=== PATIENT | female | born 1960 | race Caucasian/White ===

== ENCOUNTER 2024-10-13 20:11 | Emergency (ER) | payer OTHER, SELFPAY ==
--- NOTE | ~2024-10-13 | XR_ITS ---
CLINICAL HISTORY: fall, knee injury 4 view left knee Comparison: None Findings: Acute comminuted nondisplaced fracture of the tibial plateau. Moderate joint effusion/hemarthrosis. No significant arthritic change or erosions. No joint effusion. No radiopaque foreign body. IMPRESSION: Acute comminuted nondisplaced fracture of the tibial plateau. Moderate joint effusion/hemarthrosis. This document has been electronically signed by: Danita Mackenzie MD on 10/13/2024 21:18:45
[2024-10-13 20:34] VITALS: BP 170/80; PULSE 91; RESP 20; TEMP 36.4; O2SAT 98; BMI 30.2
--- NOTE | 2024-10-13 20:39 | ED.LOWEXIN ---
HPI - Extremity Injury (Lower) General Chief Complaint: Extremity Injury, Lower Stated Complaint: L knee injury s/p fall Time Seen by Provider: 10/13/24 23:56 Source: patient Limitations: no limitations History of Present Illness ED Provider: Nicole Johnson PA-C HPI Narrative: 63-year-old female presents with left knee pain. Patient states she stepped into a pothole subsequently tripped and fell, landing on the knee. Patient now is having limited flexion and extension of the knee and is unable to bear weight secondary to pain. Associated swelling. The patient is not on a blood thinner. Related Data Previous Rx's ?Medication ?Instructions ?Recorded methocarbamol 750 mg tablet 750 mg PO Q8H PRN pain, moderate 10/14/24 #10 tabs Allergies Allergy/AdvReac Type Severity Reaction Status Date / Time Penicillins Allergy Unknown Hives Verified 10/13/24 21:28 Review of Systems Review of Systems: Yes all other systems are reviewed and are negative Constitutional: Constitutional: Denies fatigue and Denies fever(s) Musculoskeletal: Musculoskeletal: Reports arthralgias and Reports joint swelling Endocrine: Endocrine: Denies fatigue PMFSH Past Medical History Attestation statement: The following information was validated with the patient. Social History Social History Smoked in Last 30 Days: No Use of substances other than those prescribed or required for medical reasons: No Advance Directives: No Advance Directives Information Provided: Yes Do you have a plan to hurt others: No Plan Patient : No Physical Exam Vital Signs: Vital Signs: Last Vital Signs Temp 98.4 F 10/14/24 00:01 Pulse 77 10/14/24 00:01 Resp 16 10/14/24 00:01 BP 129/77 10/14/24 00:01 Pulse Ox 97 10/14/24 00:01 O2 Del Method Room Air 10/14/24 00:01 BMI result Body Mass Index 30.2 Const: Other: Alert well-appearing Orientation/consciousness: patient oriented x3 Resp: Effort & Inspection: normal respiratory effort Cardio: Other: Normal peripheral perfusion Skin: Other: Warm dry no rash Neuro: General: patient oriented x3, gait normal, no focal motor deficits and CN's II-XI intact bilaterally Extrem: Other: Limited flexion and extension of the left knee, overlying abrasions, obvious swelling, pain most focal over anterior knee Psych: Other: Calm cooperative Course Course Course Narrative: 10/13/242038 JEROME Mack This is a Rapid Medical Examination (RME) performed by Nate Corrales PA-C in triage. Full HPI, ROS, assessment and treatment plan per primary provider in the Main ED. Hx: 63 yo F here for eval of left knee pain s/p trip and fall today. unable to bear weight. Plan: xrs Consultations Consultation #1: per ortho Antonieta Mix PA-C..... Place a knee immobilizer, crutches and follow up as an outpatient Time: 12:03 Medications Administered Discontinued Medications Generic Name Dose Route Start Last Admin Trade Name Freq PRN Reason Stop Dose Admin Methocarbamol 750 mg 10/14/24 01:28 10/14/24 01:40 Methocarbamol 750 Mg Tablet PO 10/14/24 01:29 750 mg ONCE ONE Administration Medical Decision Making Medical Decision Making [facility] Narrative: 63-year-old female presents with left knee pain. Patient states she stepped into a pothole subsequently tripped and fell, landing on the knee. Patient now is having limited flexion and extension of the knee and is unable to bear weight secondary to pain. Associated swelling. The patient is not on a blood thinner. No relevant chronic issues History: Per patient I have considered the following differential diagnoses: Fracture, dislocation, contusion, sprain Plan: X-ray obtained from triage, the patient has a tibial prep plateau fracture, with joint effusion. We will reach out to ortho for consult. Patient declining pain medicine at this time I have independently reviewed the following tests: X-ray left knee:Findings: Acute comminuted nondisplaced fracture of the tibial plateau. Moderate joint effusion/hemarthrosis. No significant arthritic change or erosions. No joint effusion. No radiopaque foreign body. IMPRESSION: Acute comminuted nondisplaced fracture of the tibial plateau. Moderate joint effusion/hemarthrosis. Discharge Plan Discharge Clinical Impression: Closed fracture of left tibial plateau Patient Disposition: Home, Self-Care Additional Instructions: You were found to have a fracture of your tibia. Keep the knee immobilizer in place, use crutches to ambulate, until you have been cleared by the orthopedic service. I am providing you with their contact. Call tomorrow to make a follow up appointment. You may want to use the immobilizer for sleep as well; it will help to stabilize the joint, and prevent pain. Alternate between the use of oefq-ykv-wplgbyp Tylenol 1000 mg taken every 8 hours, with cvon-qwf-hbiqhwo ibuprofen 600 mg taken every 6 hours with food, with the methocarbamol, which is a muscle relaxant. It will cause drowsiness, do not drive or operate machinery while taking this medication. Prescriptions: New methocarbamol 750 mg tablet 750 mg PO Q8H PRN (Reason: pain, moderate) Qty: 10 0RF Referrals: Brian Snell MD [Physician] - (left tibial plateau fx) Print Language: Belizean
[2024-10-13 21:27] VITALS: BP 151/83; PULSE 86; RESP 16; TEMP 37; O2SAT 98
--- NOTE | 2024-10-13 23:52 | PC.NURSE ---
Assumed care of pt at 2300. PT resting quietly in no acute distress, pt a/ox4, states she is comfortable when resting. Xray report is completed, pt not signed up yet. VSS. plan of care ongoing
[2024-10-14 00:01] VITALS: BP 129/77; PULSE 77; RESP 16; TEMP 36.9; O2SAT 97
[2024-10-14] MEDS: methocarbamoL 750 MG TABLET PO (01:40)
[2024-10-14 02:13] VITALS: BP 154/84; PULSE 96; RESP 16; TEMP 36.6; O2SAT 94
== END 2024-10-14 02:16 | disposition home or self-care (01) ==
PROVIDERS: Emergency Provider Emergency Medicine; PCP Student in an Organized Health Care Education/Training Program
DX: S82.142A Displaced bicondylar fracture of left tibia, initial encounter for closed fracture (principal); W01.0XXA Fall on same level from slipping, tripping and stumbling without subsequent striking against object, initial encounter; Y93.9 Activity, unspecified; Y92.9 Unspecified place or not applicable; Y99.9 Unspecified external cause status; M25.562 Pain in left knee
CPT/HCPCS: 73564; 99283; 99284

== ENCOUNTER → 2024-10-13 20:33 | Outpatient (BNV) | payer OTHER, SELFPAY | PROVIDERS: PCP Student in an Organized Health Care Education/Training Program; Visit Provider Student in an Organized Health Care Education/Training Program | DX: S82.115A Nondisplaced fracture of left tibial spine, initial encounter for closed fracture (principal) | CPT/HCPCS: 73564 ==

== ENCOUNTER 2024-10-21 09:38 | Outpatient (AMB) | payer OTHER, SELFPAY ==
--- NOTE | 2024-10-21 09:44 | MHC.OFFVIS ---
Vital Signs 10/21/24 09:48 Height 5 ft 1 in Weight 160 lb BMI 30.2 Handedness Left Intake Visit Reasons: FC- LT tibial plateau closed fx Intake Note: Zakiya is a 63 year old female who presents today with her partner and a knee immobilizer for a evaluation of her left tibial plateau fx, DOI 10/13/24. She states she stepped into a pothole subsequently tripped and fell, landing on both of her knees. She has notice bruising on both of her knees, however she mentions that her left knee is worse. Allergies Penicillins Allergy (Unknown, Verified 10/13/24 21:28) Hives HPI HPI FC- LT tibial plateau closed fx: Details: Ms. 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 She states that she was walking and unfortunately stepped into a pothole and fell. She sustained minor superficial abrasions on both knees in which they had tried to clean and apply bacitracin. When she went to stand after the injury she was unable to weightbear on the left lower extremity due to excruciating pain at the knee. She presented to the emergency department where x-rays were obtained and she was found to have a tibial plateau fracture. She was given a knee immobilizer and crutches with instruction to follow up with orthopedics outpatient for further evaluation and treatment. 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 No signs of infection at this time. No signs of open fracture. There is ecchymosis around the anterior aspect of the knee. Compartments are soft and compressible. She is able to dorsiflex and plantar flex. Sensation is intact. Pedal pulse intact. Assessment & Plan Assessment & Plan (1) Tibial plateau fracture, left: Code(s): S82.142A - Displaced bicondylar fracture of left tibia, initial encounter for closed fracture Category: Medical Plan Ms. 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 She states that she was walking and unfortunately stepped into a pothole and fell. She sustained minor superficial abrasions on both knees in which they had tried to clean and apply bacitracin. When she went to stand after the injury she was unable to weightbear on the left lower extremity due to excruciating pain at the knee. She presented to the emergency department where x-rays were obtained and she was found to have a tibial plateau fracture. She was given a knee immobilizer and crutches with instruction to follow up with orthopedics outpatient for further evaluation and treatment. While in the office today, we discussed the tibial plateau in the need for additional imaging to further evaluate the extent of the fracture. I have placed an order for a stat CT scan of the left knee to evaluate the extent of the fracture and negate the treatment plan. She was given an ACL brace off the shelf and instructed to non weightbear on the left lower extremity with the use of crutches. 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 She is unable to drive at this time and she needs to be extremely careful with nonweightbearing on the left lower extremity. She will follow up after the CT scan with me by telehealth for further discussion of the treatment plan. Left knee x-rays obtained on 10/13/2024 IMPRESSION: Acute comminuted nondisplaced fracture of the tibial plateau. Moderate joint effusion/hemarthrosis. Orders: Orders CT knee LT wo IV con Today S82.142A - Displaced bicondylar fracture of left tibia, initial encounter for closed fracture Coding Level of Care Code New Pt Level 4 (82484) Diagnoses Tibial plateau fracture, left S82.142A
[2024-10-21 09:48] VITALS: BMI 30.2
== END 2024-10-21 10:29 | disposition home or self-care (01) ==
LOC: HO.HOS 09:38
PROVIDERS: PCP Student in an Organized Health Care Education/Training Program; Visit Provider Physician Assistant
DX: S82.142A Displaced bicondylar fracture of left tibia, initial encounter for closed fracture (principal)
CPT/HCPCS: 99203

== ENCOUNTER 2024-10-21 11:20 | Outpatient (REF) | payer OTHER, SELFPAY ==
--- NOTE | ~2024-10-21 | CT_ITS ---
EXAMINATION: CT KNEE WITHOUT CONTRAST, LEFT CLINICAL INFORMATION: Intra-articular tibial plateau fracture COMPARISON: X-ray from October 13, 2024 DLP: 135 mGY*cm TECHNIQUE: Axial imaging with CT was performed without contrast scanning from the distal thigh to the proximal lower leg This CT examination was performed using dose optimization techniques as appropriate, variously including the following: *Automated exposure control *Adjustment of mA and/or kV according to patient size (this includes techniques or standardized protocols for targeted exams where dose is matched to indication/reason for exam; i.e. extremities or head) *Use of iterative reconstruction technique FINDINGS: Again noted is lipohemarthrosis. Small marginal osteophytes project into the intercondylar notch from the femoral condyle and medial tibial spine. Small marginal osteophytes present on the superior pole patella. There is mild lateral joint space narrowing. Again seen is an intra-articular fracture involving the tibial plateau. There is avulsion of the PCL tibial footprint. The bony fragment is elevated 2-3 mm. The fragment minimally extends to the articular bone in the posterior medial compartment and measures 22 x 7 x 10 mm (transverse by CC by AP). Otherwise, there is no significant gap or step-off involving the weightbearing regions of the tibial plateau. The main fracture extends from the region between the intercondylar spines and exits the medial tibial metadiaphysis 4.6 cm caudal to the articular surface. Meniscus is not well-demonstrated by CT but appear grossly intact. ACL and PCL are grossly intact. MCL and LCL complex are intact. CT/CT knee LT wo IV con IMPRESSION: Acute intra-articular tibial plateau fracture with associated lipohemarthrosis. Aside from fragmentation of the posterior central tibia minimally extending into osteochondral bone related to an avulsion fracture of the PCL footprint, there is no gap or step-off involving weightbearing surfaces. IMPRESSION: Unremarkable examination. Electronically signed by: Reji Cordova MD 10/21/2024 01:25 PM EDT
== END 2024-10-21 11:21 | disposition home or self-care (01) ==
LOC: HO.CT 11:20
PROVIDERS: Visit Provider Physician Assistant
DX: S82.142A Displaced bicondylar fracture of left tibia, initial encounter for closed fracture (principal)
CPT/HCPCS: 73700

== ENCOUNTER → 2024-10-21 11:26 | Outpatient (BNV) | payer OTHER, SELFPAY | PROVIDERS: Visit Provider Radiology Diagnostic Radiology | DX: M25.062 Hemarthrosis, left knee (principal) | CPT/HCPCS: 73700 ==

== ENCOUNTER 2024-11-22 09:47 | Outpatient (REF) | payer OTHER, SELFPAY | END 2024-11-22 09:48 | disposition home or self-care (01) | LOC: HO.HOSX 09:47 | PROVIDERS: Visit Provider Physician Assistant | DX: Z13.89 Encounter for screening for other disorder (principal) ==

== ENCOUNTER 2024-12-03 10:22 | Outpatient (REF) | payer OTHER, SELFPAY ==
--- NOTE | ~2024-12-03 | XR_ITS ---
EXAMINATION: XR KNEE, LEFT CLINICAL INFORMATION: M25.569 - Pain in unspecified knee COMPARISON: October 13, 2024 TECHNIQUE: AP bilateral, and lateral views of the left knee. FINDINGS: Again seen is a tibial fracture that extends from the tibial spines extending the medial metadiaphysis. There is interval development of osteopenia and periosteal new bone formation. There is no joint effusion. There is mild narrowing of the medial joint space and questionable narrowing of the lateral. XR/XR knee LT 2V IMPRESSION: Healing intra-articular fracture of the tibial plateau, nondisplaced. Electronically signed by: Reji Cordova MD 12/03/2024 12:28 PM EDT
--- OUTSIDE RECORDS SUMMARY | 2024-12-04 10:24 | XMS_ITS | Encounter Summary ---
Author Organization [facility] Address [address] [place] [address] Phone Care Team Providers Care Front Desk Lead Name Role Phone Maddison Obregon MD Unavailable [phone] Maryann Hensley MD Primary Care Provider [phone] Encounter Details Date Type Department Care Team (Late st Contact Info) Description 09/10/2022 Procedure Pass [facility], [facility] [address] [place] [address] Social History Tobacco Use Types Packs/Day Years [...] high school, GED, job training, learning the Dominican language, technical skills, or developing parenting skills)? [...] documented as of this encounter Care Teams Front Desk Lead Relationship Specialty Start Date End Date Maryann Hensley MD [address] [place] [address], [facility] [address] [place] [address] [email or web address] PCP - General Family Medicine 04/25/22 Maddison Obregon MD [address] [place] [address], [facility] [address] [place] [address] Historical LMR Provider 03/01/17 documented as of this encounter Additional Source Comments The information contained in this document represents components of the legal health record. It is not the complete legal health record.[facility]
== END 2024-12-03 10:23 | disposition home or self-care (01) ==
LOC: HO.HOSX 10:22
PROVIDERS: Visit Provider Physician Assistant
DX: S82.142D Displaced bicondylar fracture of left tibia, subsequent encounter for closed fracture with routine healing (principal); S80.02XA Contusion of left knee, initial encounter; M25.562 Pain in left knee
CPT/HCPCS: 73560

== ENCOUNTER 2024-12-03 11:26 | Outpatient (AMB) | payer OTHER, SELFPAY ==
--- OUTSIDE RECORDS SUMMARY | 2024-12-03 11:29 | XMS_ITS | Encounter Summary ---
Author Organization [facility] Address [address] [place] [address] Phone Care Team Providers Care Dynamometer Mechanic Name Role Phone Maddison Obregon MD Unavailable [phone] Maryann Hensley MD Primary Care Provider [phone] Encounter Details Date Type Department Care Team (Late st Contact Info) Description 09/10/2022 Procedure Pass [facility], [address] [address] Social History Tobacco Use Types Packs/Day Years Used Date Smoking Tobacco: Never Smokeless Tobacco: Never Alcohol Use Standard Drinks/Week Comments Yes 3 (1 standard drink = 0.6 oz pur e alcohol) Child or Family Care Answer Date Record ed Do you have problems with on e of the following making it difficult for you to work, study, or receive health care? No 10/02/2021 Education Answer Date Recorded Are you interested in help w ith more adult education (for example, completing high school, GED, job training, learning the Faroese language, technical skills, or developing parenting skills)? No 10/02/2021 Food Answer Date Recorded Within the past 6 months we worried whether our food would run out before we got money to buy more. Never True 10/02/2021 Within the past 6 months the food we bought just didn't last and we didn't have enough money to get more. Never True Residential Stability Answer Date Recor ded What is your housing situation today? I have pedrito sing 10/02/2021 How many times have you move d in the past 12 months? Zero (I did not move) 10/02/2021 Paying for Meds Answer Date Recorded Do you have trouble paying for medicines? No 10/02/2021 Paying Utility Bills Answer Date Record ed Do you have trouble paying your heating or elect ricity bill? No 10/02/2021 Transportation Answer Date Recorded Has the lack of transportati on kept you from medical appointments or from getting medications? No 10/02/2021 Unemployment Answer Date Recorded Are you currently unemployed or working on a part-time or temporary basis, and looking for work? No 10/02/2021 Comments No Sex and Gender Information Value Date Recorded Sex Assigned at Not on file Legal Sex Female 6:23 PM EST Gender Identity Not on file Sexual Orientation Not on file documented as of this encounter Plan of Treatment Not on file documented as of this encounter Visit Diagnoses Not on filedocumented in this encounter Additional Health Concerns Assessment Noted Time PHQ-2 Depression Total Score: 0 10/03/19 22 2:35 PM EDT documented as of this encounter Care Teams Dynamometer Mechanic Relationship Specialty Start Date End Date Maryann Hensley MD [address] [place] [address], [facility] [address] [place] [address] [email or web address] PCP - General Family Medicine 04/25/22 Maddison Obregon MD [address] [place] [address], [facility] [address] [place] [address] Historical LMR Provider 03/01/17 documented as of this encounter Additional Source Comments The information contained in this document represents components of the legal health record. It is not the complete legal health record.[facility]
--- NOTE | 2024-12-03 11:59 | MHC.OFFVIS ---
Vital Signs 12/03/24 12:15 Height 5 ft 1 in Weight 160 lb BMI 30.2 Intake Visit Reasons: OV- LT tibial plateau Fx 10/11/24 Intake Note: Zakiya is a 63 year old female who presents today for a follow up s/p Left Tibial Plateau Fracture 10/13/24. At this time the patient was instructed to remain Non Weight Bearing for 3 months and to wear the ACL Brace. She states that he is not in pain at the moment. Allergies Penicillins Allergy (Unknown, Verified 12/03/24 12:07) Hives HPI HPI OV- LT tibial plateau Fx 10/11/24: Details: Ms. Burgos is a 63-year-old female who presents to the office today for routine follow-up status post left tibial plateau fracture that occurred on 10/11/2024. At her last appointment on 10/21/24 the patient was placed into an ACL brace locked in extension while ambulating and instructed to non weightbear for roughly 3 months. She has been compliant with these recommendations and declines any pain at this time. 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 No signs of infection at this time. No signs of open fracture. There is ecchymosis around the anterior aspect of the knee. Range of motion is 0-30 degrees. She is able to dorsiflex and plantar flex. Sensation is intact. Pedal pulse intact. Assessment & Plan Assessment & Plan (1) Tibial plateau fracture, left: Code(s): S82.142A - Displaced bicondylar fracture of left tibia, initial encounter for closed fracture Category: Medical Plan Ms. Burgos is a 63-year-old female who presents to the office today for routine follow-up status post left tibial plateau fracture that occurred on 10/11/2024. At her last appointment on 10/21/24 the patient was placed into an ACL brace locked in extension while ambulating and instructed to non weightbear for roughly 3 months. She has been compliant with these recommendations and declines any pain at this time. On the office today repeat x-rays were obtained of the left knee and were reviewed by me, Antonieta Mix PA-C and reveal routine healing of the left nondisplaced tibial plateau fracture. Patient was placed back into the ACL brace. She was educated that while ambulating she should have the brace locked in extension. While she is not ambulating she may unlock the brace. Additionally, I placed a physical therapy order to work on gentle range of motion. She will continue nonweightbearing for a total of 3 months status post injury. She will follow up on 01/04/2025 with repeat x-rays, sooner if needed. Orders: Orders PT Evaluation and Treatment Today S82.142A - Displaced bicondylar fracture of left tibia, initial encounter for closed fracture Coding Level of Care Code Global (18676) Diagnoses Tibial plateau fracture, left S82.142A
[2024-12-03 12:15] VITALS: BMI 30.2
== END 2024-12-03 12:46 | disposition home or self-care (01) ==
LOC: HO.HOS 11:27
PROVIDERS: Visit Provider Physician Assistant
DX: S82.142A Displaced bicondylar fracture of left tibia, initial encounter for closed fracture (principal)
CPT/HCPCS: 99213

== ENCOUNTER → 2024-12-03 11:28 | Outpatient (BNV) | payer OTHER, SELFPAY | PROVIDERS: Visit Provider Radiology Diagnostic Radiology | DX: M25.562 Pain in left knee (principal) | CPT/HCPCS: 73560 ==

== ENCOUNTER 2025-01-04 08:23 | Outpatient (REF) | payer OTHER, SELFPAY ==
--- NOTE | ~2025-01-04 | XR_ITS ---
EXAMINATION: XR KNEE, LEFT CLINICAL INFORMATION: M25.569 - Pain in unspecified knee COMPARISON: 12/03/2024, 10/13/2024. TECHNIQUE: Three views of the left knee. FINDINGS: There is disuse osteopenia. [place] view is very limited due to superimposition of the patient's foot. Again noted is a nondisplaced fracture of the proximal tibia extending from the tibial spines to the metadiaphysis. Fracture lines are less distinct and slightly more sclerotic indicating continued healing. There is no articular step off. There is normal alignment of the knee. There is no joint effusion. Soft tissues appear normal. XR/XR knee LT 3V IMPRESSION: 1. Continued healing of a nondisplaced tibial plateau fracture. 2. Disuse osteopenia. Electronically signed by: Kirit Fulton MD 01/04/2025 10:00 AM EDT
--- OUTSIDE RECORDS SUMMARY | 2025-01-06 09:00 | XMS_ITS | Encounter Summary ---
Author Organization [facility] Address [address] [place] [address] [place] [address] Phone Care Team Providers Care Scientist Immunology Name Role Phone Maddison Obregon MD Unavailable [phone] Maddison Obregon MD Primary Care Provider [phone] Maryann Hensley MD Primary Care Provider [phone] Encounter Details Date Type Department Care Team (Late st Contact Info) Description 06/30/2019 Ancillary Orders [facility] [address] [place], [place] [id number] Maddison Obregon MD [address] [place] [address] 7 [place] [address] [email or web address] Breast screening Social History Tobacco Use Types [...] There are scattered fibroglandular densities. POS - [id number] Narrative 11/25/2019 9:35 AM EDT Standard digital [...] and compared with multiple prior studies, most uoqlleze84/14/2018, with utilization of computer-aided detection. The breasts are composed of scattered fibroglandular densities. Thestromal markings are essentially unchanged in overall appearance anddistribution. No dominant spiculated mass, suspicious clusteredmicrocalcifications, or focal zone of pathologic skin thickening orretraction are noted to have arisen in the interim. IMPRESSION: No mammographic evidence of malignancy. BI-RADS CATEGORY: 1 - Negative. DENSITY: There are scattered fibroglandular densities. POS - [id number] Maddison Obregon MD IMG MG EXAMS Final [...] documented as of this encounter Care Teams Scientist Immunology Relationship Specialty Start Date End Date Maddison Obregon MD [address] [facility], [facility] [address] [place] [address] [email or web address] PCP - General 05/15/17 04/24/22 Maryann Hensley MD [address] [facility], [facility] [address] [place] [address] PCP - General Family Medicine 04/25/22 Maddison Obregon MD [address] [place] [address], [facility] [address] [place] [address] [email or web address] Historical LMR Provider 03/01/17 documented as of this encounter Additional Source Comments The information contained in this document represents components of the legal health record. It is not the complete legal health record.[facility]
--- OUTSIDE RECORDS SUMMARY | 2025-01-06 09:00 | XMS_ITS | Encounter Summary ---
Author Organization [facility] Address [address] [place] [address] Phone Care Team Providers Care Committee Member Name Role Phone Maddison Obregon MD Unavailable [phone] Maryann Hensley MD Primary Care Provider [phone] Encounter Details Date Type Department Care Team (Late st Contact Info) Description 09/10/2022 Procedure Pass [facility], [facility] [address] [place] [address] Social History Tobacco Use Types Packs/Day Years [...] high school, GED, job training, learning the Gibraltarian language, technical skills, or developing parenting skills)? [...] documented as of this encounter Care Teams Committee Member Relationship Specialty Start Date End Date Maryann Hensley MD [address] [place] [address], [facility] 7 [place] [address] [email or web address] PCP - General Family Medicine 04/25/22 Maddison Obregon MD [address] [place] [address], [facility] 7 [place] [address] Historical LMR Provider 03/01/17 documented as of this encounter Additional Source Comments The information contained in this document represents components of the legal health record. It is not the complete legal health record.[facility]
--- OUTSIDE RECORDS SUMMARY | 2025-01-06 09:00 | XMS_ITS | Encounter Summary ---
Author Organization [facility] Address [address] [place] [address] Phone Care Team Providers Care Tractor Mechanic Apprentice Name Role Phone Maddison Obregon MD Unavailable [phone] Maddison Obregon MD Primary Care Provider [phone] Maryann Hensley MD Primary Care Provider [phone] Encounter Details Date Type Department Care Team (Late st Contact Info) Description 02/11/2022 Procedure Pass [facility], [facility] 30 [place] [address] Social History Tobacco Use Types Packs/Day Years [...] high school, GED, job training, learning the Ukrainian language, technical skills, or developing parenting skills)? [...] documented as of this encounter Care Teams Tractor Mechanic Apprentice Relationship Specialty Start Date End Date Maddison Obregon MD [address] [address] PCP - General 05/15/17 04/24/22 Maryann Hensley MD [address] [address] PCP - General Family Medicine 04/25/22 Maddison Obregon MD [address] [address] [email or web address] Historical LMR Provider 03/01/17 documented as of this encounter Additional Source Comments The information contained in this document represents components of the legal health record. It is not the complete legal health record.[facility]
--- OUTSIDE RECORDS SUMMARY | 2025-01-06 09:00 | XMS_ITS | Encounter Summary ---
Author Organization [facility] Address [address] [place] [address] [place] [address] Phone Care Team Providers Care Lead Process Engineer Name Role Phone Maddison Obregon MD Unavailable [phone] Maddison Obregon MD Primary Care Provider [phone] Maryann Hensley MD Primary Care Provider [phone] Encounter Details Date Type Department Care Team (Late st Contact Info) Description 05/26/2018 Ancillary Orders Virtual Department 30 [place] [address] Romero Long MD [address] [place] [address] [email or web address] Intestinal malabsorption, unspecified type Social History Tobacco [...] documented as of this encounter Care Teams Lead Process Engineer Relationship Specialty Start Date End Date Maddison Obregon MD [address] [place] [address], [facility] 7 [place] [address] PCP - General 05/15/17 04/24/22 Maryann Hensley MD [address] [place] [address] 7 [place] [address] PCP - General Family Medicine 04/25/22 Maddison Obregon MD [address] [place] [address], [facility] 7 [place] [address] Historical LMR Provider 03/01/17 documented as of this encounter Additional Source Comments The information contained in this document represents components of the legal health record. It is not the complete legal health record.[facility]
--- OUTSIDE RECORDS SUMMARY | 2025-01-06 09:00 | XMS_ITS | Encounter Summary ---
Author Organization [facility] Address [address] [place] [address] [place] [address] Phone Care Team Providers Care Film Inspector Name Role Phone Maddison Obregon MD Unavailable [phone] Maryann Hensley MD Primary Care Provider [phone] Reason for Referral * MRI/CAT Scan - Closed Specialty Diagnoses / Procedures Referred By Chris lewis Referred To Contact Radiology Diagnoses At high risk for breast cancer Procedures MRI Breast (Bilateral) Maryann Hensley MD 234 [facility] 7 [place] [address] Phone: tel: fax: mailto:[email or web address] Referral ID Status Reason Start Date Expiration Date Visits Re quested Visits Authorized [id number] Closed 03/22/2024 1 1 Encounter Details Date Type Department Care Team (Late st Contact Info) Description 03/22/2024 Ancillary Orders [facility] [address] [place] [address] Maryann Hensley MD [address] [address] [email or web address] At high risk for breast cancer (Primary [...] high school, GED, job training, learning the Syrian language, technical skills, or developing parenting skills)? [...] (series 102 image 140), there is a C6wjohgcnqsjhr, oval, enhancing (progressive, type I) nodule measuring 0.6cm, this has a stable mammographic correlate dating back to 2021. Inferiorto the enhancing nodule there are 4 linearly oriented enhancing focipresent, there is a mammographic correlate for this finding on priormammogram of 2022 and these are felt to be present mammographically [id number]. Therefore, this MR finding is considered probably [...] documented as of this encounter Care Teams Film Inspector Relationship Specialty Start Date End Date Maryann Hensley MD 234 [facility], [address] [place] [address] [email or web address] PCP - General Family Medicine 04/25/22 Maddison Obregon MD 234 [facility], [address] [place] [address] [email or web address] Historical LMR Provider 03/01/17 documented as of this encounter Additional Source Comments The information contained in this document represents components of the legal health record. It is not the complete legal health record.[facility]
--- OUTSIDE RECORDS SUMMARY | 2025-01-06 09:00 | XMS_ITS | Encounter Summary ---
Author Organization [facility] Address [address] [place] [address] Phone Care Team Providers Care Taxation Agent Name Role Phone Maddison Obregon MD Unavailable [phone] Maryann Hensley MD Primary Care Provider [phone] Encounter Details Date Type Department Care Team (Late st Contact Info) Description 01/22/2024 Procedure Pass [facility], [address] [address] Social History Tobacco Use Types Packs/Day Years [...] high school, GED, job training, learning the Peruvian language, technical skills, or developing parenting skills)? [...] documented as of this encounter Care Teams Taxation Agent Relationship Specialty Start Date End Date Maryann Hensley MD [address] [place] [address], [address] [place] [address] PCP - General Family Medicine 12/15/22 Maddison Obregon MD [address] [place] [address], [address] [place] [address] [email or web address] Historical LMR Provider 03/01/17 documented as of this encounter Additional Source Comments The information contained in this document represents components of the legal health record. It is not the complete legal health record.[facility]
--- OUTSIDE RECORDS SUMMARY | 2025-01-06 09:00 | XMS_ITS | Encounter Summary ---
Author Organization [facility] Address [address] [place] [address] Phone Care Team Providers Care Metalizer Field Operation Name Role Phone Maddison Obregon MD Unavailable [phone] Maddison Obregon MD Primary Care Provider [phone] Maryann Hensley MD Primary Care Provider [phone] Encounter Details Date Type Department Care Team (Late st Contact Info) Description 12/24/2021 Procedure Pass [facility], [facility] 30 [place] [address] Social History Tobacco Use Types Packs/Day Years [...] high school, GED, job training, learning the Paraguayan language, technical skills, or developing parenting skills)? [...] documented as of this encounter Care Teams Metalizer Field Operation Relationship Specialty Start Date End Date Maddison Obregon MD [address] [place] [address] PCP - General 05/15/17 04/24/22 Maryann Hensley MD [address] [place] [address] 7 [place] [address] PCP - General Family Medicine 04/25/22 Maddison Obregon MD [address] [place] [address] 7 [place] [address] Historical LMR Provider 03/01/17 documented as of this encounter Additional Source Comments The information contained in this document represents components of the legal health record. It is not the complete legal health record.[facility]
--- OUTSIDE RECORDS SUMMARY | 2025-01-06 09:00 | XMS_ITS | Encounter Summary ---
Author Organization [facility] Address [address] [place] [address] Phone Care Team Providers Care Manager Instrumentation Name Role Phone Maddison Obregon MD Unavailable [phone] Maddison Obregon MD Primary Care Provider [phone] Maryann Hensley MD Primary Care Provider [phone] Encounter Details Date Type Department Care Team (Late st Contact Info) Description 02/11/2022 Procedure Pass [facility], [facility] 30 [place] [address] Social History Tobacco Use Types Packs/Day Years [...] high school, GED, job training, learning the Yemeni language, technical skills, or developing parenting skills)? [...] documented as of this encounter Care Teams Manager Instrumentation Relationship Specialty Start Date End Date Maddison Obregon MD [address] [address] PCP - General 05/15/17 04/24/22 Maryann Hensley MD [address] [address] PCP - General Family Medicine 04/25/22 Maddison Obregon MD [address] [address] Historical LMR Provider 03/01/17 documented as of this encounter Additional Source Comments The information contained in this document represents components of the legal health record. It is not the complete legal health record.[facility]
--- OUTSIDE RECORDS SUMMARY | 2025-01-06 09:01 | XMS_ITS | Encounter Summary ---
Author Organization [facility] Address [address] [facility] [address] [place] [address] Phone Care Team Providers Care Crepe Sole Scourer Name Role Phone Maddison Obregon MD Unavailable [phone] Maddison Obregon MD Primary Care Provider [phone] Maryann Hensley MD Primary Care Provider [phone] Encounter Details Date Type Department Care Team (Late st Contact Info) Description 04/29/2018 Procedure Pass [facility] Ad[facility] Virtual Department 30 [place] [address] Social History Tobacco Use Types Packs/Day Years [...] documented as of this encounter Care Teams Crepe Sole Scourer Relationship Specialty Start Date End Date Maddison Obregon MD [address] [place] [address], [address] [place] [address] [email or web address] PCP - General 05/15/17 04/24/22 Maryann Hensley MD [address] [place] [address], [facility] [address] [place] [address] PCP - General Family Medicine 04/25/22 Maddison Obregon MD [address] [place] [address], [address] [place] [address] [email or web address] Historical LMR Provider 03/01/17 documented as of this encounter Additional Source Comments The information contained in this document represents components of the legal health record. It is not the complete legal health record.[facility]
--- OUTSIDE RECORDS SUMMARY | 2025-01-06 09:01 | XMS_ITS | Encounter Summary ---
Author Organization [facility] Address [address] [place] [address] Phone Care Team Providers Care Agronomy Manager Name Role Phone Maddison Obregon MD Unavailable [phone] Maddison Obregon MD Primary Care Provider [phone] aMryann Hensley MD Primary Care Provider [phone] Encounter Details Date Type Department Care Team (Late st Contact Info) Description 10/02/2021 Procedure Pass [facility] [address] [place] [address] Social History Tobacco Use Types Packs/Day Years [...] documented as of this encounter Care Teams Agronomy Manager Relationship Specialty Start Date End Date Maddison Obregon MD [address] [place] [address] PCP - General 05/15/17 04/24/22 Maryann Hensley MD [address] [place] [address] 7 [place] [address] PCP - General Family Medicine 04/25/22 Maddison Obregon MD [address] [place] [address], [address] [place] [address] [email or web address] Historical LMR Provider 03/01/17 documented as of this encounter Additional Source Comments The information contained in this document represents components of the legal health record. It is not the complete legal health record.[facility]
--- OUTSIDE RECORDS SUMMARY | 2025-01-06 09:01 | XMS_ITS | Encounter Summary ---
Author Organization [facility] Address [address] [place] [address] Phone Care Team Providers Care Caseworker Protective Services Name Role Phone Maddison Obregon MD Unavailable Maryann Hensley MD Primary Care Provider [phone] Encounter Details Date Type Department Care Team (Late st Contact Info) Description 03/22/2024 Procedure Pass [facility], [address] [address] Social History Tobacco Use Types Packs/Day Years [...] high school, GED, job training, learning the Bruneian language, technical skills, or developing parenting skills)? [...] documented as of this encounter Care Teams Caseworker Protective Services Relationship Specialty Start Date End Date Maryann Hensley MD [address] [place] [address], [address] [place] [address] PCP - General Family Medicine 12/15/22 Maddison Obregon MD [address] [place] [address], [address] [place] [address] [email or web address] Historical LMR Provider 03/01/17 documented as of this encounter Additional Source Comments The information contained in this document represents components of the legal health record. It is not the complete legal health record.[facility]
--- OUTSIDE RECORDS SUMMARY | 2025-01-06 09:01 | XMS_ITS | Encounter Summary ---
Author Organization [facility] Address [address] [place] [address] [place] [address] Phone Care Team Providers Care Pharmacovigilance Safety Expert Name Role Phone Maddison Obregon MD Unavailable [phone] Maddison Obregon MD Primary Care Provider [phone] Maryann Hensley MD Primary Care Provider [phone] Encounter Details Date Type Department Care Team (Late st Contact Info) Description 01/02/2018 Ancillary Orders [facility] 234 [place], [place] [id number] Maddison Obregon MD [address] [place] [address] 7 [place] [address] [email or web address] Breast screening Social [...] documented as of this encounter Care Teams Pharmacovigilance Safety Expert Relationship Specialty Start Date End Date Maddison Obregon MD [address] [place] [address] 7 [place] [address] PCP - General 05/15/17 04/24/22 Maryann Hensley MD [address] [place] [address] 7 [place] [address] PCP - General Family Medicine 04/25/22 Maddison Obregon MD [address] [place] [address] 7 [place] [address] Historical LMR Provider 03/01/17 documented as of this encounter Additional Source Comments The information contained in this document represents components of the legal health record. It is not the complete legal health record.[facility]
--- OUTSIDE RECORDS SUMMARY | 2025-01-06 09:01 | XMS_ITS | Clinical Summary ---
Author Organization [facility] Address [address] [facility] [address] [place] [address] Phone Care Team Providers Care Mult Au Matic Operator Name Role Phone Maddison Obregon MD Unavailable [phone] Maryann Hensley MD Primary Care Provider [phone] Allergies Active Allergy Reactions Criticality Noted Date Comments Nickel Swelling Medium 01/22/2024 Penicillin Rash Low 12/09/2016 Other reaction(s): Unknown Medications vitamins A,C,E-zinc-copy cutter per ([facility]) [id number] dpjd-wv-iljf Cap Take 1 capsule by mouth 2 [...] ulcerative colitis 12/31/2017 Overview (04/25/2022): Followed by [facility] -- on katrina, works great. Assessment [...] Department Care Team Description 10/22/2024 Orders Only [facility] 234 [place] [address] ProviderBalbina MD 10/14/2024 Telephone [facility] [address] [place] [address] Maryann Hensley MD Follow-up; Medication Question from [...] high school, GED, job training, learning the Tunisian language, technical skills, or developing parenting skills)? [...] (series 102 image 140), there is a J9rskmyxllhfen, oval, enhancing (progressive, type I) nodule measuring 0.6cm, this has a stable mammographic correlate dating back to 2021. Inferiorto the enhancing nodule there are 4 linearly oriented enhancing focipresent, there is a mammographic correlate for this finding on priormammogram of 2022 and these are felt to be present mammographically [id number]. Therefore, this MR finding is considered probably [...] (01/29/2024 8:21 AM EDT) HDL 56 mg/dL [facility] Comment: Interpretation <40 mg/dL: Low HDL cholesterol (major risk factor for CHD) Greater than or equal to 60 mg/dL: High HDL cholesterol ( negative risk factor for CHD) HDL - cholesterol is affected by a number of factors, e.g. smoking, excerise, hormones, sex and age. CHOLESTEROL 228 0 - 240 mg/dL [facility] TRIGLYCERIDES 79 30 - 160 mg/dL [facility] LDL 156(H) 50 - 129 mg/dL [facility] Comment: LDL levels in terms of risk for coronary heart disease: <100 mg/dL: Optimal 100-129 mg/dL: Near or above optimal 130-159 mg/dL: Borderline high 160-189 mg/dL: High >190 mg/dL: Very High CARDIAC RISK RATIO 4.1 3.3 - 4.4 [facility] Blood 01/29/2024 8:21 AM EDT 01/29/2024 8:23 AM EDT Maryann Hensley MD LAB BLOOD ORDERABLES Sailaja l Result [address] [address] * COLONOSCOPY FOR RESULT ENTRY ONLY (02/10/2023) Historical Provider HEALTH MAINTENANCE Final Result * Pap Smear (10/04/2021 12:00 AM EDT) 10/04/2021 10/05/2021 9:0 9 AM EDT Narrative SEE NARRATIVE - 10/12/2021 11:35 AM EDT [address] [address] Wellness Health Coach: Berenice Dudley MD [facility] Cytology Report FINAL DIAGNOSIS A. PAP SMEAR [...] 52, 56, 58, 59, 66, 68) by [employer] On[employer] HR-HPV analysis. Clinical correlation is advised. This HPV test was performed at [facility], [address] [place] [address]. This test has been FDA approved for [employer] cervical cytology specimens. The accuracy and precision of this test for all other specimen sources has been verified in the Cytopathology Laboratory of the [facility] and has not been cleared or approved by the U.S. Food and Drug Administration. Clinical correlation is advised. CLINICAL HISTORY Date of Last Menstrual Period: Not Provided Menstrual History: Post Menopausal Other Clinical Conditions: Screening Pap SPECIMEN SOURCE A: PAP SMEAR (SUREPATH) CE Patient Name: JAVI BURGOS : 1960 (Age: 60) Sex: F Institution: [facility] Location: [facility] Date of Collection: 10/04/2021 Date of Reported: 10/12/2021 11:35 Results to: Maddison Obregon MD, BA us Maddison Obregon MD CYTOLOGY ORDERABLES Final Res ult SEE NARRATIVE * Hepatitis C antibody, qualitative (07/20/2019 8:10 AM EDT) HCV NON-REACTIV E NON-REACTI VE [facility] Blood 07/20/2019 8:10 AM EDT 07/20/2019 8:12 AM EDT us Maddison Obregon MD LAB BLOOD ORDERABLES Final Re sult [facility] Organization Address City/State/ZIP Co de Phone Number [facility] [address] [place], [place] [id number] from Last 3 Months or Most Recently Relevant to Health Maintenance Insurance CHOICE CHOICE CHOICE CHOICE CHOICE CHOICE CHOICE CHOICE CHOICE [place] [phone] Care Teams Mult Au Matic Operator Relationship Specialty Start Date End Date Maryann Hensley MD [address] [place] [address], [address] [place] [address] [email or web address] PCP - General Family Medicine 04/25/22 Maddison Obregon MD [address] [facility], [address] [place] [address] [email or web address] Historical LMR Provider 03/01/17 Additional Source Comments The information contained in this document represents components of the legal health record. It is not the complete legal health record.[facility]
--- OUTSIDE RECORDS SUMMARY | 2025-01-06 09:01 | XMS_ITS | Encounter Summary ---
Author Organization [facility] Address [address] [place] [address] Phone Care Team Providers Care Advanced Practice Provider Name Role Phone Maddison Obregon MD Unavailable [phone] Maddison Obregon MD Primary Care Provider [phone] Maryann Hensley MD Primary Care Provider [phone] Encounter Details Date Type Department Care Team (Late st Contact Info) Description 11/29/2020 Procedure Pass [facility], [facility] 30 [place] [address] Social History Tobacco Use Types Packs/Day Years [...] high school, GED, job training, learning the Sammarinese language, technical skills, or developing parenting skills)? [...] documented as of this encounter Care Teams Advanced Practice Provider Relationship Specialty Start Date End Date Maddison Obregon MD [address] [place] [address] [email or web address] PCP - General 05/15/17 04/24/22 Maryann Hensley MD [address] [place] [address] [email or web address] PCP - General Family Medicine 04/25/22 Maddison Obregon MD [address] [place] [address] [email or web address] Historical LMR Provider 03/01/17 documented as of this encounter Additional Source Comments The information contained in this document represents components of the legal health record. It is not the complete legal health record.[facility]
--- OUTSIDE RECORDS SUMMARY | 2025-01-06 09:01 | XMS_ITS | Encounter Summary ---
Author Organization [facility] Address [address] [place] [address] Phone Care Team Providers Care Underwater Hunter Name Role Phone Maddison Obregon MD Unavailable [phone] Maddison Obregon MD Primary Care Provider Maryann Hensley MD Primary Care Provider [phone] Encounter Details Date Type Department Care Team (Late st Contact Info) Description 11/29/2020 Ancillary Orders [facility] [address] [place] [address] Maddison Obregon MD [address] [place] [address] 7 [place] [address] [email or web address] Breast screening Social History Tobacco Use Types [...] high school, GED, job training, learning the Cameroonian language, technical skills, or developing parenting skills)? [...] documented as of this encounter Care Teams Underwater Hunter Relationship Specialty Start Date End Date Maddison Obregon MD [address] [place] [address] [place] [address] [email or web address] PCP - General 05/15/17 04/24/22 Maryann Hensley MD [address] [place] [address] [place] [address] [email or web address] PCP - General Family Medicine 04/25/22 Maddison Obregon MD [address] [place] [address] [place] [address] [email or web address] Historical LMR Provider 03/01/17 documented as of this encounter Additional Source Comments The information contained in this document represents components of the legal health record. It is not the complete legal health record.[facility]
--- OUTSIDE RECORDS SUMMARY | 2025-01-06 09:01 | XMS_ITS | Encounter Summary ---
Author Organization [facility] Address [address] [place] [address] Phone Care Team Providers Care Document Advisor Name Role Phone Maddison Obregon MD Unavailable [phone] Maryann Hensley MD Primary Care Provider [phone] Reason for Visit * Reason Onset Date Comments Follow-up 10/14/2024 Medication Question 10/14/2024 Encounter Details Date Type Department Care Team (Late st Contact Info) Description 10/14/2024 Telephone [facility] 234 [place] [address] Maryann Hensley MD [address] [place] [address] [address] [place] [address] [email or web address] Follow-up; Medication Question Social History Tobacco Use [...] high school, GED, job training, learning the Chadian language, technical skills, or developing parenting skills)? [...] schedule Medication issue to be resolved by [facility] provider Pt will call if an appt is needed (she is seeing ortho provider next wk) * ChangSravan - 10/14/2024 11:11 AM EDT Emergency Department (ED, ER) Appointment Booking Telephone Encounter 1.Appointment scheduled within 5 calendar days:YES/NO: no? 2.Virtual or in-person appointment: In-Person and N/A 3.Information related to the patient ER/ED visit: A. Facility Name:? [facility] ED B. Date of ED Visit: 10/13/2024 C. Reason for visit (Diagnosis/Symptoms):? broken left tibial plateau 4.Is the record of the Emergency Department visit in the chart: YES/NO: no? a. IF NOT, patient was instructed to have records faxed to office, and to bring in a hard copy during the appointment. Pt is asking for a prescription, methocarbamol was prescribed by [facility] but the pharmacy will not fill. Central Support Party Chief (Please do not reply to this user; this inbox is not monitored.) Thank you. documented in this encounter Plan of Treatment Not on file documented as of this encounter Visit Diagnoses Not on filedocumented in this encounter Additional Health Concerns Assessment Noted Time PHQ-2 Depression Total Score: 0 01/22/20 24 1:30 PM EDT documented as of this encounter Care Teams Document Advisor Relationship Specialty Start Date End Date Maryann Hensley MD [address] [place] [address], [facility] 7 [place] [address] PCP - General Family Medicine 04/25/22 Maddison Obregon MD [address] [place] [address], [facility] 7 [place] [address] Historical LMR Provider 03/01/17 documented as of this encounter Additional Source Comments The information contained in this document represents components of the legal health record. It is not the complete legal health record.[facility]
--- OUTSIDE RECORDS SUMMARY | 2025-01-06 09:01 | XMS_ITS | Encounter Summary ---
Author Organization [facility] Address [address] [facility] [address] [place] [address] Phone Care Team Providers Care Executive Administrator Name Role Phone Maddison Obregon MD Unavailable [phone] Maddison Obregon MD Primary Care Provider [phone] Maryann Hensley MD Primary Care Provider [phone] Encounter Details Date Type Department Care Team (Late st Contact Info) Description 10/19/2020 Procedure Pass [facility] Admitting [facility] Virtual Department 30 [place], [place] [id number] Social History Tobacco Use Types Packs/Day Years [...] high school, GED, job training, learning the Chilean language, technical skills, or developing parenting skills)? [...] documented as of this encounter Care Teams Executive Administrator Relationship Specialty Start Date End Date Maddison Obregon MD [address] [place] [address] 7 [place] [address] PCP - General 05/15/17 04/24/22 Maryann Hensley MD [address] [place] [address] 7 [place] [address] PCP - General Family Medicine 04/25/22 Maddison Obregon MD [address] [place] [address] 7 [place] [address] Historical LMR Provider 03/01/17 documented as of this encounter Additional Source Comments The information contained in this document represents components of the legal health record. It is not the complete legal health record.[facility]
--- OUTSIDE RECORDS SUMMARY | 2025-01-06 09:01 | XMS_ITS | Encounter Summary ---
Author Organization [facility] Address [address] [facility] [address] [place] [address] Phone Care Team Providers Care Adjunct Professor Name Role Phone Maddison Obregon MD Unavailable [phone] Maddison Obregon MD Primary Care Provider [phone] Maryann Hensley MD Primary Care Provider [phone] Encounter Details Date Type Department Care Team (Late st Contact Info) Description 04/07/2018 Ancillary Orders Virtual Department 30 [place] [address] Ousmane Sood MD [address] [place] [address] [email or web address] Intestinal malabsorption, unspecified type Social History Tobacco [...] documented as of this encounter Care Teams Adjunct Professor Relationship Specialty Start Date End Date Maddison Obregon MD [address] [place] [address], [facility] 7 [place] [address] PCP - General 05/15/17 04/24/22 Maryann Hensley MD [address] [place] [address], [facility] 7 [place] [address] PCP - General Family Medicine 04/25/22 Maddison Obregon MD [address] [place] [address], [facility] 7 [place] [address] Historical LMR Provider 03/01/17 documented as of this encounter Additional Source Comments The information contained in this document represents components of the legal health record. It is not the complete legal health record.[facility]
--- OUTSIDE RECORDS SUMMARY | 2025-01-06 09:01 | XMS_ITS | Encounter Summary ---
Author Organization [facility] Address [address] [place] [address] [place] [address] Phone Care Team Providers Care Supervisor Ride Assembly Name Role Phone Maddison Obregon MD Unavailable [phone] Maddison Obregon MD Primary Care Provider [phone] Maryann Hensley MD Primary Care Provider [phone] Encounter Details Date Type Department Care Team (Late st Contact Info) Description 11/28/2017 Ancillary Orders Virtual Department 30 [place] [address] Shalini Valerio MD [address] [place] [address] [email or web address] Kidney stone Social History Tobacco Use Types [...] and right renal stone. No hydronephrosis. POS [id number] Edited by: Carolyn Montano on 01/28/2018 10:12 [...] cysts and right renal stone. Nohydronephrosis. POS [id number] Edited by: Carolyn Montano on 01/28/2018 10:12 AM Shalini Valerio MD [facility] Final Resu lt documented in this [...] documented as of this encounter Care Teams Supervisor Ride Assembly Relationship Specialty Start Date End Date Maddison Obregon MD [address] [place] [address], [facility] 7 [place] [address] [email or web address] PCP - General 05/15/17 04/24/22 Maryann Hensley MD [address] [place] [address], [facility] 7 [place] [address] PCP - General Family Medicine 04/25/22 Maddison Obregon MD [address] [place] [address], [facility] 7 [place] [address] Historical LMR Provider 03/01/17 documented as of this encounter Additional Source Comments The information contained in this document represents components of the legal health record. It is not the complete legal health record.[facility]
== END 2025-01-04 08:24 | disposition home or self-care (01) ==
LOC: HO.HOSX 08:23
PROVIDERS: Visit Provider Physician Assistant
DX: S82.142D Displaced bicondylar fracture of left tibia, subsequent encounter for closed fracture with routine healing (principal); X58.XXXD Exposure to other specified factors, subsequent encounter
CPT/HCPCS: 73562

== ENCOUNTER 2025-01-04 09:30 | Outpatient (AMB) | payer OTHER, SELFPAY ==
--- NOTE | 2025-01-04 09:35 | A.OFFVIS_ITS ---
Vital Signs 01/04/25 09:43 Height 5 ft 1 in Weight 160 lb BMI 30.2 Intake Visit Reasons: OV- LT tibial plateau Fx 10/11/24 Intake Note: Zakiya is a 64 year old female who presents today for a follow up of her Left Tibial Plateau Fracture 10/13/24. At her last visit she was advised to continue wearing her ACL brace, locked in extension and it she is sitting she should have the ACL brace unlocked. Patient was also referred to physical therapy to work on gentle range of motion. Patient states she has been attending physical therapy focusing on bending her knee and she is expereincing very little pain at this time. Allergies Penicillins Allergy (Unknown, Verified 01/04/25 09:45) Hives HPI HPI OV- LT tibial plateau Fx 10/11/24: Details: Ms. Burgos is a 64-year-old female who presents to the office today accompanied by her for routine follow-up status post left tibial plateau fracture that occurred on 10/11/2024. Patient has been nonweightbearing in the knee ACL brace as instructed at her last appointment. She is working on gentle range of motion with physical therapy. She denies any pain or discomfort at this time. She is looking forward to beginning weight-bearing activities and progressing with range of motion. 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 No ecchymosis, erythema or joint effusion. Range of motion is 0-50 degrees. NVI. Psych Appearance: grossly normal Mental Status: mental status grossly normal Attitude: cooperative Assessment & Plan Assessment & Plan (1) Tibial plateau fracture, left: Code(s): S82.142A - Displaced bicondylar fracture of left tibia, initial encounter for closed fracture Category: Medical Plan Ms. Burgos is a 64-year-old female who presents to the office today accompanied by her for routine follow-up status post left tibial plateau fracture that occurred on 10/11/2024. Patient has been nonweightbearing in the knee ACL brace as instructed at her last appointment. She is working on gentle range of motion with physical therapy. She denies any pain or discomfort at this time. She is looking forward to beginning weight-bearing activities and progressing with range of motion. While in the office today, I have instructed the patient that she may progress to weight-bearing as tolerated. I have recommended that she continue using crutches to assist with ambulation for balance at this time. Additionally, I would like her to continue with physical therapy working on gait training as well as unlocking the brace during ambulation 10 degrees each week until full range of motion is obtained and then she may discontinue the brace. I educated the patient that should she have any increase in pain she should stop weight-bearing immediately and contact our office or present to the emergency department for evaluation. Patient understands and accepts. She will follow up in 6 weeks with repeat x-rays, sooner if needed. X-rays of the left knee which were obtained while in the office today and were reviewed by me, Antonieta Mix PA-C, revealed routine healing tibial plateau fracture. Orders: Orders XR knee LT 3V Today M25.569 - Pain in unspecified knee PT Evaluation and Treatment Today S82.142A - Displaced bicondylar fracture of left tibia, initial encounter for closed fracture Coding Level of Care Code Global (67278) Diagnoses Tibial plateau fracture, left S82.142A
[2025-01-04 09:43] VITALS: BMI 30.2
--- OUTSIDE RECORDS SUMMARY | 2025-01-04 10:06 | XMS_ITS | Encounter Summary ---
Author Organization [facility] Address [address] [place] [address] [place] [address] Phone Care Team Providers Care Engine Buildup Mechanic Name Role Phone Maddison Obregon MD Unavailable [phone] Maryann Hensley MD Primary Care Provider [phone] Reason for Referral * MRI/CAT Scan - Closed Specialty Diagnoses / Procedures Referred By Chris lewis Referred To Contact Radiology Diagnoses At high risk for breast cancer Procedures MRI Breast (Bilateral) Maryann Hensley MD 234 [facility] [address] [place] [address] Phone: tel: fax: mailto:[email or web address] Referral ID Status Reason Start Date Expiration Date Visits Re quested Visits Authorized [id number] Closed 03/22/2024 1 1 Encounter Details Date Type Department Care Team (Late st Contact Info) Description 03/22/2024 Ancillary Orders [facility] Medicine [address] [place] [address] Maryann Hensley MD [address] [address] [email or web address] At high risk for breast cancer (Primary Dx) Social History Tobacco Use Types Packs/Day Years Used Date Smoking Tobacco: Never Smokeless Tobacco: Never Alcohol Use Standard Drinks/Week Comments Yes 3 (1 standard drink = 0.6 oz pur e alcohol) Child or Family Care Answer Date Record ed Do you have problems with on e of the following making it difficult for you to work, study, or receive health care? No 01/22/2024 Education Answer Date Recorded Are you interested in help w ith more adult education (for example, completing high school, GED, job training, learning the [place] language, technical skills, or developing parenting skills)? No 01/22/2024 Are you concerned about learning? Not on file 01/22/2024 No 01/22/2024 Yes 01/22/2024 Food Answer Date Recorded Within the past 6 months we worried whether our food would run out before we got money to buy more. Never True 01/22/2024 Within the past 6 months the food we bought just didn't last and we didn't have enough money to get more. Never True Residential Stability Answer Date Recor ded What is your housing situation today? I have pedrito sing 01/22/2024 How many times have you move d in the past 12 months? Zero (I did not move) 01/22/2024 Paying for Meds Answer Date Recorded Do you have trouble paying for medicines? No 01/22/2024 Paying Utility Bills Answer Date Record ed Do you have trouble paying your heating or elect ricity bill? No 01/22/2024 Transportation Answer Date Recorded Has the lack of transportati on kept you from medical appointments or from getting medications? No 01/22/2024 Unemployment Answer Date Recorded Are you currently unemployed or working on a part-time or temporary basis, and looking for work? No 10/02/2021 Digital Access Answer Date Recorded No 01/22/2024 Yes 01/22/2024 Do you have reliable internet access at home? Ye s 01/22/2024 Do you have a device (e.g., phone, tablet, computer) with a working camera? Yes 01/22/2024 Intimate Partner Violence Answer Date R ecorded Denied Basic Needs Not on file 01/22/2024 In the past 12 months have y ou been in a relationship with a person who hurts, threatens, or tries to control you? No 01/22/2024 Worried food would run out Not on file 01/21 In the past 12 months have y ou been in a relationship with a person who hurts, threatens, or tries to control you? No 01/22/2024 Comments No Sex and Gender Information Value Date Recorded Sex Assigned at Not on file Legal Sex Female 6:23 PM EST Gender Identity Not on file Sexual Orientation Not on file documented as of this encounter Plan of Treatment Not on file documented as of this encounter Results * BI MRI BREAST WITH AND WITHOUT CONTRAST (BILATERAL) (03/29/2024 11:20 AM EST) Anatomical Region Laterality Modality Breast Left, Breast Right, Breast Bilateral Bila teral Magnetic Resonance 03/30/2024 10:1 8 AM EST Impressions 03/30/2024 3:37 PM EST Sensitivity of this exam is limited by diffuse, bilateral, right greater than left scattered enhancing foci. However, the findings are considered probably benign in nature and follow-up MRI is advised. There is no MR finding suspicious for malignancy. Of note, the patient is currently due for bilateral yearly mammogram. BI-RADS 3 PROBABLY BENIGN Short interval follow-up suggested Please note that mammography offers complementary information to MRI and certain findings may be visible primarily on mammography. The patient should keep all scheduled mammography appointments and continue annual screening mammography. Narrative 03/30/2024 3:37 PM EST BI MRI BREAST WITH AND WITHOUT CONTRAST (BILATERAL) Additional patient information: Elevated lifetime risk of developing breast cancer. High risk screening. TECHNIQUE: Dynamic multiphase imaging in the axial plane was performed after the uneventful administration of 14.5 mL intravenous gadolinium contrast agent. Computer generated 3D reconstruction and enhancement kinetic analysis was utilized by the radiologist in the interpretation of this examination. Contrast sequences are read in conjunction with previous T1 and T2-weighted axial sequences of 03/18/2024. Contrast sequence is performed as repeat imaging due to poor fat saturation on prior bilateral breast MRI. COMPARISON: Comparison is made to prior mammograms of 11/24/2020, 12/21/2021, 09/10/2022 and 03/17/2023. Breast composition: The breast tissue is composed of scattered fibroglandular elements bilaterally. Background parenchymal enhancement: Mild. FINDINGS: Right There are innumerable, small, T2 hyperintense, enhancing nodules scattered throughout the right breast, most of these findings demonstrate type II kinetics. There is an area of progressive-type clumped nodular nonmasslike enhancement in the 3:00 position at a posterior depth, 8 cm from the nipple measuring 0.8 cm. The numerous findings in the right breast are considered probably benign in nature. There is no dominant suspicious enhancing mass, evidence of duct dilatation or ductal type enhancement. No skin thickening or nipple retraction is seen. There is no axillary or internal mammary lymphadenopathy on the right. Left Although fewer in number as compared to findings in the right breast, there are scattered, similar appearing enhancing foci present. In the 3:00 position at a posterior depth (series 102 image 140), there is a T2 hyperintense, oval, enhancing (progressive, type I) nodule measuring 0.6 cm, this has a stable mammographic correlate dating back to 2021. Inferior to the enhancing nodule there are 4 linearly oriented enhancing foci present, there is a mammographic correlate for this finding on prior mammogram of 2022 and these are felt to be present mammographically and 2018. Therefore, this MR finding is considered probably benign in nature and attention on follow-up MRIs is advised. There is no dominant suspicious enhancing mass, skin thickening or nipple retraction. There is no axillary or internal mammary lymphadenopathy on the left. Other No incidental or abnormal findings. Procedure Note Marguerite Buckley MD - 03/30/2024 BI MRI BREAST WITH AND WITHOUT CONTRAST (BILATERAL) Additional patient information: Elevated lifetime risk of developingbreast cancer. High risk screening. TECHNIQUE: Dynamic multiphase imaging in the axial plane was performedafter the uneventful administration of 14.5 mL intravenous gadoliniumcontrast agent. Computer generated 3D reconstruction and enhancementkinetic analysis was utilized by the radiologist in the interpretation ofthis examination. Contrast sequences are read in conjunction with previousT1 and T2-weighted axial sequences of 03/18/2024. Contrast sequence isperformed as repeat imaging due to poor fat saturation on prior bilateralbreast MRI. COMPARISON: Comparison is made to prior mammograms of 11/24/2020,12/21/2021, 09/10/2022 and 03/17/2023. Breast composition: The breast tissue is composed of scatteredfibroglandular elements bilaterally. Background parenchymal enhancement: Mild. FINDINGS: Right There are innumerable, small, T2 hyperintense, enhancing nodules scatteredthroughout the right breast, most of these findings demonstrate type IIkinetics. There is an area of progressive-type clumped nodular nonmasslikeenhancement in the 3:00 position at a posterior depth, 8 cm from thenipple measuring 0.8 cm. The numerous findings in the right breast areconsidered probably benign in nature. There is no dominant suspiciousenhancing mass, evidence of duct dilatation or ductal type enhancement. Noskin thickening or nipple retraction is seen. There is no axillary or internal mammary lymphadenopathy on the right. Left Although fewer in number as compared to findings in the right breast,there are scattered, similar appearing enhancing foci present. In the 3:00position at a posterior depth (series 102 image 140), there is a [id number], oval, enhancing (progressive, type I) nodule measuring 0.6cm, this has a stable mammographic correlate dating back to 2021. Inferiorto the enhancing nodule there are 4 linearly oriented enhancing focipresent, there is a mammographic correlate for this finding on priormammogram of 2022 and these are felt to be present mammographically [id number]. Therefore, this MR finding is considered probably benign in natureand attention on follow-up MRIs is advised. There is no dominantsuspicious enhancing mass, skin thickening or nipple retraction. There is no axillary or internal mammary lymphadenopathy on the left. Other No incidental or abnormal findings. IMPRESSION: Sensitivity of this exam is limited by diffuse, bilateral, right greaterthan left scattered enhancing foci. However, the findings are consideredprobably benign in nature and follow-up MRI is advised. There is no MRfinding suspicious for malignancy. Of note, the patient is currently due for bilateral yearly mammogram. BI-RADS 3 PROBABLY BENIGN Short interval follow-up suggested Please note that mammography offers complementary information to MRI andcertain findings may be visible primarily on mammography. The patientshould keep all scheduled mammography appointments and continue annualscreening mammography. us Maryann Hensley MD IMG MR BREAST Final Res ult documented in this encounter Visit Diagnoses Diagnosis At high risk for breast cancer- Primary At high risk for breast cancer documented in this encounter Additional Health Concerns Assessment Noted Time PHQ-2 Depression Total Score: 0 01/22/20 24 1:30 PM EDT documented as of this encounter Care Teams Engine Buildup Mechanic Relationship Specialty Start Date End Date Maryann Hensley MD 234 [facility], [address] [place] [address] [email or web address] PCP - General Family Medicine 04/25/22 Maddison Obregon MD 234 [facility], [address] [place] [address] [email or web address] Historical LMR Provider 03/01/17 documented as of this encounter Additional Source Comments The information contained in this document represents components of the legal health record. It is not the complete legal health record.[facility]
--- OUTSIDE RECORDS SUMMARY | 2025-01-04 10:06 | XMS_ITS | Encounter Summary ---
Author Organization [facility] Address [address] [place] [address] [place] [address] Phone Care Team Providers Care Soil Scientist Name Role Phone Maddison Obregon MD Unavailable [phone] Maddison Obregon MD Primary Care Provider Maryann Hensley MD Primary Care Provider [phone] Encounter Details Date Type Department Care Team (Late st Contact Info) Description 11/28/2017 Ancillary Orders Virtual Department [address] [place] [address] Shalini Valerio MD [address] [place] [id number] [email or web address] Kidney stone Social History Tobacco Use Types Packs/Day Years Used Date Smoking Tobacco: Never Assessed Comments Unknown Sex and Gender Information Value Date Recorded Sex Assigned at Not on file Legal Sex Female 6:23 PM EST Gender Identity Not on file Sexual Orientation Not on file documented as of this encounter Plan of Treatment Not on file documented as of this encounter Results * US Kidneys (01/28/2018 9:37 AM EDT) Anatomical Region Laterality Modality Abdomen, Kidney Ultrasound 01/28/2018 10:0 5 AM EDT Impressions 01/28/2018 10:29 AM EDT Stable appearance of left renal cysts and right renal stone. No hydronephrosis. POS [id number] Edited by: Carolyn Montano on 01/28/2018 10:12 AM Narrative 01/28/2018 10:29 AM EDT COMPARISON: 12/24/2016 FINDINGS: Kidneys: Right kidney measured at 11.8 cm in length and left 10.9 cm. No solid masses detected. There is no hydronephrosis. In the upper pole of the left kidney two small adjacent cysts or a septated cyst measured in aggregate at 1.0 x 0.6 x 0.6 cm. Septum measures under 2 mm. This is consistent with a benign cyst. In the right kidney there is an echogenic focus with vascular shadow measuring maximally 5 mm consistent with a stone, similar in appearance to previous. It is measured slightly larger today but that is likely related to reverberation. No stones seen on the left. Procedure Note Tre Candelario MD - 01/28/2018 COMPARISON: 12/24/2016 FINDINGS: Kidneys: Right kidney measured at 11.8 cm in length and left 10.9 cm. Nosolid masses detected. There is no hydronephrosis. In the upper pole ofthe left kidney two small adjacent cysts or a septated cyst measured inaggregate at 1.0 x 0.6 x 0.6 cm. Septum measures under 2 mm. This isconsistent with a benign cyst. In the right kidney there is an echogenicfocus with vascular shadow measuring maximally 5 mm consistent with astone, similar in appearance to previous. It is measured slightly largertoday but that is likely related to reverberation. No stones seen on theleft. IMPRESSION: Stable appearance of left renal cysts and right renal stone. Nohydronephrosis. POS [id number] Edited by: Carolyn Montano on 01/28/2018 10:12 AM Shalini Valerio MD [facility] Final Resu lt documented in this encounter Visit Diagnoses Diagnosis Kidney stone Calculus of kidney Kidney stone Calculus of kidney documented in this encounter Additional Health Concerns Infection Onset Date Last Indicated Resolved Time CoV-Presumed 10/17/2020 10/17/2020 11/07/2020 1:24 AM EDT CoV-Exposed Comment:Recent close contact documented in the COVID-19 Amb Triage Form 11/08/2021 11/13/2021 11/19/2021 1:22 AM E DT CoV-Exposed Comment:Recent close contact documented in the COVID-19 Amb Triage Form 12/29/2021 01/02/2022 01/09/2022 1:22 AM E DT documented as of this encounter Care Teams Soil Scientist Relationship Specialty Start Date End Date Maddison Obregon MD [address] [place] [address], [facility] [address] [place] [address] [email or web address] PCP - General 05/15/17 04/24/22 Maryann Hensley MD [address] [place] [address], [facility] [address] [place] [address] PCP - General Family Medicine 04/25/22 Maddison Obregon MD [address] [place] [address], [facility] [address] [place] [address] Historical LMR Provider 03/01/17 documented as of this encounter Additional Source Comments The information contained in this document represents components of the legal health record. It is not the complete legal health record.[facility]
--- OUTSIDE RECORDS SUMMARY | 2025-01-04 10:06 | XMS_ITS | Encounter Summary ---
Author Organization [facility] Address [address] [place] [address] [place] [address] Phone Care Team Providers Care Psychotherapist Counselor Name Role Phone Maddison Obregon MD Unavailable [phone] Maddison Obregon MD Primary Care Provider [phone] Maryann Hensley MD Primary Care Provider [phone] Encounter Details Date Type Department Care Team (Late st Contact Info) Description 01/02/2018 Ancillary Orders [facility] [address] [place], [place] [id number] Maddison Obregon MD [address] [place] [address] [address] [place] [address] [email or web address] Breast screening Social History Tobacco Use Types Packs/Day Years Used Date Smoking Tobacco: Never Smokeless Tobacco: Never Alcohol Use Standard Drinks/Week Comments Yes 4 (1 standard drink = 0.6 oz pur e alcohol) Comments Unknown Sex and Gender Information Value Date Recorded Sex Assigned at Not on file Legal Sex Female 6:23 PM EST Gender Identity Not on file Sexual Orientation Not on file documented as of this encounter Plan of Treatment Not on file documented as of this encounter Results * BI MAMMOGRAM SCREENING WITH TOMOSYNTHESIS WITH CAD (BILATERAL) (01/23/2018 9:34 AM EDT) Anatomical Region Laterality Modality Breast Left, Breast Right, Breast Bilateral Bila teral Mammography 01/23/2018 9:48 AM EDT Impressions 01/23/2018 9:52 AM EDT No mammographic change indicative of malignancy. Annual screening is recommended the right of family history. BI-RADS CATEGORY: 1 - Negative. DENSITY: There are scattered fibroglandular densities. POS -CDHMAMA Narrative 01/23/2018 9:52 AM EDT Bilateral full-field digital screening mammography is obtained and read in conjunction with computer-aided detection. Tomosynthesis as well as 2-D C view imaging of both breasts in two planes also obtained. Comparison made to multiple prior, most recent 09/12/2016, and most remote 07/31/2011. No dominant mass, architectural distortion, worrisome asymmetry, or suspicious calcification is identified. No skin or nipple finding of concern is appreciated. Procedure Note Tre Candelario MD - 01/23/2018 Bilateral full-field digital screening mammography is obtained and read inconjunction with computer-aided detection. Tomosynthesis as well as 2-D Cview imaging of both breasts in two planes also obtained. Comparison madeto multiple prior, most recent 09/12/2016, and most remote 07/31/2011. No dominant mass, architectural distortion, worrisome asymmetry, orsuspicious calcification is identified. No skin or nipple finding ofconcern is appreciated. IMPRESSION: No mammographic change indicative of malignancy. Annual screening isrecommended the right of family history. BI-RADS CATEGORY: 1 - Negative. DENSITY: There are scattered fibroglandular densities. POS -CDHMAMA Maddison Obregon MD IMG MG EXAMS Final Result documented in this encounter Visit Diagnoses Diagnosis Breast screening Breast screening, unspecified Breast screening Breast screening, unspecified documented in this encounter Additional Health Concerns Infection Onset Date Last Indicated Resolved Time CoV-Presumed 10/17/2020 10/17/2020 11/07/2020 1:24 AM EDT CoV-Exposed Comment:Recent close contact documented in the COVID-19 Amb Triage Form 11/08/2021 11/13/2021 11/19/2021 1:22 AM E DT CoV-Exposed Comment:Recent close contact documented in the COVID-19 Amb Triage Form 12/29/2021 01/02/2022 01/09/2022 1:22 AM E DT Assessment Noted Time PHQ-2 Depression Total Score: 0 01/01/20 2:53 PM EDT documented as of this encounter Care Teams Psychotherapist Counselor Relationship Specialty Start Date End Date Maddison Obregon MD [address] [place] [address] [address] [place] [address] PCP - General 05/15/17 04/24/22 Maryann Hensley MD [address] [place] [address] 7 [place] [address] PCP - General Family Medicine 04/25/22 Maddison Obregon MD [address] [place] [address] 7 [place] [address] Historical LMR Provider 03/01/17 documented as of this encounter Additional Source Comments The information contained in this document represents components of the legal health record. It is not the complete legal health record.[facility]
--- OUTSIDE RECORDS SUMMARY | 2025-01-04 10:06 | XMS_ITS | Encounter Summary ---
Author Organization [facility] Address [address] [place] [address] Phone Care Team Providers Care Record Systems Analyst Name Role Phone Maddison Obregon MD Unavailable [phone] Maddison Obregon MD Primary Care Provider [phone] Maryann Hensley MD Primary Care Provider [phone] Encounter Details Date Type Department Care Team (Late st Contact Info) Description 11/29/2020 Ancillary Orders [facility] [address] [place] [address] Maddison Obregon MD [address] [place] [address] 7 [place] [address] [email or web address] Breast screening Social History Tobacco Use Types [...] work, study, or receive health care? No 08/09/2020 Education Answer Date Recorded Are you interested in help w ith more adult education (for example, completing high school, GED, job training, learning the Egyptian language, technical skills, or developing parenting skills)? No 08/09/2020 Food Answer Date Recorded Within the past 6 months we worried whether our food would run out before we got money to buy more. Never True 08/09/2020 Within the past 6 months the food we bought just didn't last and we didn't have enough money to get more. Never True Paying for Meds Answer Date Recorded Do you have trouble paying for medicines? No 08/09/2020 Paying Utility Bills Answer Date Record ed Do you have trouble paying your heating or elect ricity bill? No 08/09/2020 Transportation Answer Date Recorded Has the lack of transportati on kept you from medical appointments or from getting medications? No 08/09/2020 Comments No Sex and Gender Information Value Date Recorded Sex Assigned at Not on file Legal Sex Female 6:23 PM EST Gender Identity Not on file Sexual Orientation Not on file documented as of this encounter Plan of Treatment Not on file documented as of this encounter Results * BI MAMMOGRAM SCREENING WITH TOMOSYNTHESIS WITH CAD (BILATERAL) (12/15/2020 9:29 AM EDT) Anatomical Region Laterality Modality Breast Left, Breast Right, Breast Bilateral Bila teral Mammography 12/15/2020 10:0 6 AM EDT Impressions 12/15/2020 10:14 AM EDT No mammographic change indicative of malignancy. Annual screening is recommended. BI-RADS CATEGORY: 2 - Benign finding. DENSITY: There are scattered fibroglandular densities. Narrative 12/15/2020 10:14 AM EDT Bilateral full-field digital screening mammography is obtained and read in conjunction with computer-aided detection. Tomosynthesis as well as 2-D C view imaging of both breasts in two planes also obtained. Comparison made to multiple prior, most recent November 25, 2019, and most remote January 07, 2014. No dominant mass, architectural distortion, worrisome asymmetry, or suspicious calcification is identified. No skin or nipple finding of concern is appreciated. Mild nodularity again noted bilaterally on tomosynthesis without any area being more suspicious than another. Procedure Note Garret Rodrigues MD - 12/15/2020 Bilateral full-field digital screening mammography is obtained and read inconjunction with computer-aided detection. Tomosynthesis as well as 2-D Cview imaging of both breasts in two planes also obtained. Comparison madeto multiple prior, most recent November 25, 2019, and most remote December. No dominant mass, architectural distortion, worrisome asymmetry, orsuspicious calcification is identified. No skin or nipple finding ofconcern is appreciated. Mild nodularity again noted bilaterally ontomosynthesis without any area being more suspicious than another. IMPRESSION: No mammographic change indicative of malignancy. Annual screening isrecommended. BI-RADS CATEGORY: 2 - Benign finding. DENSITY: There are scattered fibroglandular densities. Maddison Obregon MD IMG MG EXAMS Final Result documented in this encounter Visit Diagnoses Diagnosis Breast screening Breast screening, unspecified Breast screening Breast screening, unspecified documented in this encounter Additional Health Concerns Infection Onset Date Last Indicated Resolved Time CoV-Exposed Comment:Recent close contact documented in the COVID-19 Amb Triage Form 11/08/2021 11/13/2021 11/19/2021 1:22 AM E DT CoV-Exposed Comment:Recent close contact documented in the COVID-19 Amb Triage Form 12/29/2021 01/02/2022 01/09/2022 1:22 AM E DT Assessment Noted Time PHQ-2 Depression Total Score: 0 08/10/19 21 9:12 AM EDT documented as of this encounter Care Teams Record Systems Analyst Relationship Specialty Start Date End Date Maddison Obregon MD [address] [place] [address] [place] [address] [email or web address] PCP - General 05/15/17 04/24/22 Maryann Hensley MD [address] [place] [address] [place] [address] [email or web address] PCP - General Family Medicine 04/25/22 Maddison Obregon MD [address] [place] [address] [place] [address] [email or web address] Historical LMR Provider 03/01/17 documented as of this encounter Additional Source Comments The information contained in this document represents components of the legal health record. It is not the complete legal health record.[facility]
--- OUTSIDE RECORDS SUMMARY | 2025-01-04 10:06 | XMS_ITS | Encounter Summary ---
Author Organization [facility] Address [address] [place] [address] Phone Care Team Providers Care Restaurant Kitchen Manager Name Role Phone Maddison Obregon MD Unavailable [phone] Maddison Obregon MD Primary Care Provider [phone] Maryann Hensley MD Primary Care Provider [phone] Encounter Details Date Type Department Care Team (Late st Contact Info) Description 04/29/2018 Procedure Pass [facility] Admitting Dept Virtual Department [address] [place] [address] Social History Tobacco Use Types Packs/Day Years Used Date Smoking Tobacco: Never Smokeless Tobacco: Never Alcohol Use Standard Drinks/Week Comments Yes 3 (1 standard drink = 0.6 oz pur e alcohol) Comments No Sex and Gender Information Value Date Recorded Sex Assigned at Not on file Legal Sex Female 6:23 PM EST Gender Identity Not on file Sexual Orientation Not on file documented as of this encounter Plan of Treatment Not on file documented as of this encounter Visit Diagnoses Not on filedocumented in this encounter Additional Health Concerns Infection [...] documented as of this encounter Care Teams Restaurant Kitchen Manager Relationship Specialty Start Date End Date Maddison Obregon MD [address] [place] [address], [address] [place] [address] [email or web address] PCP - General 05/15/17 04/24/22 Maryann Hensley MD [address] [place] [address], [facility] [address] [place] [address] PCP - General Family Medicine 04/25/22 Maddison Obregon MD [address] [place] [address], [address] [place] [address] [email or web address] Historical LMR Provider 03/01/17 documented as of this encounter Additional Source Comments The information contained in this document represents components of the legal health record. It is not the complete legal health record.[facility]
--- OUTSIDE RECORDS SUMMARY | 2025-01-04 10:06 | XMS_ITS | Encounter Summary ---
Author Organization [facility] Address [address] [place] [address] Phone Care Team Providers Care Net Making Supervisor Name Role Phone Maddison Obregon MD Unavailable [phone] Maddison Obregon MD Primary Care Provider [phone] Maryann Hensley MD Primary Care Provider [phone] Encounter Details Date Type Department Care Team (Late st Contact Info) Description 02/11/2022 Procedure Pass [facility], [facility] [address] [place] [address] Social History Tobacco Use Types Packs/Day Years [...] high school, GED, job training, learning the Venezuelan language, technical skills, or developing parenting skills)? [...] documented as of this encounter Care Teams Net Making Supervisor Relationship Specialty Start Date End Date Maddison Obregon MD [address] [address] PCP - General 05/15/17 04/24/22 Maryann Hensley MD [address] [address] PCP - General Family Medicine 04/25/22 Maddison Obregon MD [address] [address] Historical LMR Provider 03/01/17 documented as of this encounter Additional Source Comments The information contained in this document represents components of the legal health record. It is not the complete legal health record.[facility]
--- OUTSIDE RECORDS SUMMARY | 2025-01-04 10:06 | XMS_ITS | Encounter Summary ---
Author Organization [facility] Address [address] [facility] [address] [place] [address] Phone Care Team Providers Care Health Researcher Name Role Phone Maddison Obregon MD Unavailable [phone] Maddison Obregon MD Primary Care Provider [phone] Maryann Hensley MD Primary Care Provider [phone] Encounter Details Date Type Department Care Team (Late st Contact Info) Description 04/07/2018 Ancillary Orders Virtual Department 30 [place] [address] Ousmane Sood MD [address] [place] [address] [email or web address] Intestinal malabsorption, unspecified type Social History Tobacco Use Types Packs/Day Years [...] documented as of this encounter Visit Diagnoses Diagnosis Intestinal malabsorption, unspecified type documented in this encounter Additional Health Concerns [...] documented as of this encounter Care Teams Health Researcher Relationship Specialty Start Date End Date Maddison Obregon MD [address] [place] [address], [facility] [address] [place] [address] PCP - General 05/15/17 04/24/22 Maryann Hensley MD [address] [place] [address], [facility] [address] [place] [address] PCP - General Family Medicine 04/25/22 Maddison Obregon MD [address] [place] [address], [facility] [address] [place] [address] Historical LMR Provider 03/01/17 documented as of this encounter Additional Source Comments The information contained in this document represents components of the legal health record. It is not the complete legal health record.[facility]
--- OUTSIDE RECORDS SUMMARY | 2025-01-04 10:06 | XMS_ITS | Encounter Summary ---
Author Organization [facility] Address [address] [place] [address] Phone Care Team Providers Care Paper Cutting Machine Operator Name Role Phone Maddison Obregon MD Unavailable [phone] Maryann Hensley MD Primary Care Provider [phone] Reason for Visit * Reason Onset Date Comments Follow-up 10/14/2024 Medication Question 10/14/2024 Encounter Details Date Type Department Care Team (Late st Contact Info) Description 10/14/2024 Telephone [facility] [address] [place] [address] Maryann Hensley MD [address] [place] [address] [address] [place] [address] [email or web address] Follow-up; Medication Question Social History Tobacco Use Types Packs/Day Years [...] high school, GED, job training, learning the Hungarian language, technical skills, or developing parenting skills)? [...] on file documented as of this encounter Progress Notes * Marissa Kim - 10/14/2024 1:30 PM EDT Pt declined to schedule Medication issue to be resolved by [facility] provider Pt will call if an appt is needed (she is seeing ortho provider next wk) * ChangSravan - 10/14/2024 11:11 AM EDT Emergency Department (ED, ER) Appointment Booking Telephone Encounter 1.Appointment scheduled within 5 calendar days:YES/NO: no? 2.Virtual or in-person appointment: In-Person and N/A 3.Information related to the patient ER/ED visit: A. Facility Name:? [facility] ED B. Date of ED Visit: 10/13/2024 C. Reason for visit (Diagnosis/Symptoms):? broken left tibial plateau 4.Is the record of the Emergency Department visit in the chart: YES/NO: no? a. IF NOT, patient was instructed to have records faxed to office, and to bring in a hard copy during the appointment. Pt is asking for a prescription, methocarbamol was prescribed by [facility] ED but the pharmacy will not fill. Central Support Radio Script Writer (Please do not reply to this user; this inbox is not monitored.) Thank you. documented in this encounter Plan of Treatment Not on file documented as of this encounter Visit Diagnoses Not on filedocumented in this encounter Additional Health Concerns Assessment Noted Time PHQ-2 Depression Total Score: 0 01/22/20 24 1:30 PM EDT documented as of this encounter Care Teams Paper Cutting Machine Operator Relationship Specialty Start Date End Date Maryann Hensley MD [address] [place] [address], [facility] 7 [place] [address] PCP - General Family Medicine 04/25/22 Maddison Obregon MD [address] [place] [address], [facility] 7 [place] [address] Historical LMR Provider 03/01/17 documented as of this encounter Additional Source Comments The information contained in this document represents components of the legal health record. It is not the complete legal health record.[facility]
--- OUTSIDE RECORDS SUMMARY | 2025-01-04 10:06 | XMS_ITS | Encounter Summary ---
Author Organization [facility] Address [address] [place] [address] Phone Care Team Providers Care Data Analytics Architect Name Role Phone Maddison Obregon MD Unavailable [phone] Maddison Obregon MD Primary Care Provider [phone] Maryann Hensley MD Primary Care Provider [phone] Encounter Details Date Type Department Care Team (Late st Contact Info) Description 12/24/2021 Procedure Pass [facility], [facility] 30 [place] [address] Social History Tobacco Use Types Packs/Day Years [...] high school, GED, job training, learning the Pakistani language, technical skills, or developing parenting skills)? [...] Time PHQ-2 Depression Total Score: 0 10/03/19 2:35 PM EDT documented as of this encounter Care Teams Data Analytics Architect Relationship Specialty Start Date End Date Maddison Obregon MD [address] [place] [address] PCP - General 05/15/17 04/24/22 Maryann Hensley MD [address] [place] [address] 7 [place] [address] PCP - General Family Medicine 04/25/22 Maddison Obregon MD [address] [place] [address] 7 [place] [address] Historical LMR Provider 03/01/17 documented as of this encounter Additional Source Comments The information contained in this document represents components of the legal health record. It is not the complete legal health record.[facility]
--- OUTSIDE RECORDS SUMMARY | 2025-01-04 10:06 | XMS_ITS | Encounter Summary ---
Author Organization [facility] Address [address] [place] [address] Phone Care Team Providers Care X Ray Developer Name Role Phone Maddison Obregon MD Unavailable [phone] Maddison Obregon MD Primary Care Provider [phone] Maryann Hensley MD Primary Care Provider [phone] Encounter Details Date Type Department Care Team (Late st Contact Info) Description 10/02/2021 Procedure Pass [facility] [address] [place] [address] Social History Tobacco Use Types Packs/Day Years [...] high school, GED, job training, learning the Kittitian language, technical skills, or developing parenting skills)? [...] your housing situation today? I have pedrito grant 10/02/2021 How many times have you move [...] documented as of this encounter Care Teams X Ray Developer Relationship Specialty Start Date End Date Maddison Obregon MD [address] [place] [address] PCP - General 05/15/17 04/24/22 Maryann Hensley MD [address] [place] [address] 7 [place] [address] PCP - General Family Medicine 04/25/22 Maddison Obregon MD [address] [place] [address], [address] [place] [address] [email or web address] Historical LMR Provider 03/01/17 documented as of this encounter Additional Source Comments The information contained in this document represents components of the legal health record. It is not the complete legal health record.[facility]
--- OUTSIDE RECORDS SUMMARY | 2025-01-04 10:06 | XMS_ITS | Encounter Summary ---
Author Organization [facility] Address [address] [place] [address] Phone Care Team Providers Care Merchandise Adjustment Clerk Name Role Phone Maddison Obregon MD Unavailable [phone] Maddison Obregon MD Primary Care Provider [phone] Maryann Hensley MD Primary Care Provider [phone] Encounter Details Date Type Department Care Team (Late st Contact Info) Description 02/11/2022 Procedure Pass [facility], [facility] [address] [place] [address] Social History Tobacco Use Types Packs/Day Years [...] high school, GED, job training, learning the Welsh language, technical skills, or developing parenting skills)? [...] documented as of this encounter Care Teams Merchandise Adjustment Clerk Relationship Specialty Start Date End Date Maddison Obregon MD [address] [address] PCP - General 05/15/17 04/24/22 Maryann Hensley MD [address] [address] PCP - General Family Medicine 04/25/22 Maddison Obregon MD [address] [address] Historical LMR Provider 03/01/17 documented as of this encounter Additional Source Comments The information contained in this document represents components of the legal health record. It is not the complete legal health record.[facility]
--- OUTSIDE RECORDS SUMMARY | 2025-01-04 10:06 | XMS_ITS | Encounter Summary ---
Author Organization [facility] Address [address] [place] [address] [place] [address] Phone Care Team Providers Care Senior Compensation Analyst Name Role Phone Maddison Obregon MD Unavailable [phone] Maddison Obregon MD Primary Care Provider [phone] Maryann Hensley MD Primary Care Provider [phone] Encounter Details Date Type Department Care Team (Late st Contact Info) Description 06/30/2019 Ancillary Orders [facility] [address] [place], [place] [id number] Maddison Obregon MD [address] [place] [address] 7 [place] [address] [email or web address] Breast screening Social History [...] MAMMOGRAM SCREENING WITH TOMOSYNTHESIS WITH CAD (BILATERAL) (11/25/2019 9:26 AM EDT) Anatomical Region Laterality Modality Breast Left, Breast Right, Breast Bilateral Bila teral Mammography 11/25/2019 9:33 AM EDT Impressions 11/25/2019 9:35 AM EDT No mammographic evidence of malignancy. BI-RADS CATEGORY: 1 - Negative. DENSITY: There are scattered fibroglandular densities. POS - [id number] Narrative 11/25/2019 9:35 AM EDT Standard digital full-field 2-D C view and two-plane tomographic imaging was performed and compared with multiple prior studies, most recently 01/23/2018, with utilization of computer-aided detection. The breasts are composed of scattered fibroglandular densities. The stromal markings are essentially unchanged in overall appearance and distribution. No dominant spiculated mass, suspicious clustered microcalcifications, or focal zone of pathologic skin thickening or retraction are noted to have arisen in the interim. Procedure Note Gi Meza MD - 11/25/2019 Standard digital full-field 2-D C view and two-plane tomographic imagingwas performed and compared with multiple prior studies, most [id number], with utilization of computer-aided detection. The breasts are composed of scattered fibroglandular densities. Thestromal markings are essentially unchanged in overall appearance anddistribution. No dominant spiculated mass, suspicious clusteredmicrocalcifications, or focal zone of pathologic skin thickening orretraction are noted to have arisen in the interim. IMPRESSION: No mammographic evidence of malignancy. BI-RADS CATEGORY: 1 - Negative. DENSITY: There are scattered fibroglandular densities. POS - [id number] Maddison Obregon MD IMG MG EXAMS Final [...] Noted Time PHQ-2 Depression Total Score: 0 06/29/19 9:33 AM EST documented as of this encounter Care Teams Senior Compensation Analyst Relationship Specialty Start Date End Date Maddison Obregon MD [address] [facility], [facility] [address] [place] [address] [email or web address] PCP - General 05/15/17 04/24/22 Maryann Hensley MD [address] [facility], [facility] 7 [place] [address] PCP - General Family Medicine 04/25/22 Maddison Obregon MD [address] [place] [address], [facility] 7 [place] [address] [email or web address] Historical LMR Provider 03/01/17 documented as of this encounter Additional Source Comments The information contained in this document represents components of the legal health record. It is not the complete legal health record.[facility]
--- OUTSIDE RECORDS SUMMARY | 2025-01-04 10:06 | XMS_ITS | Encounter Summary ---
Author Organization [facility] Address [address] [place] [address] Phone Care Team Providers Care Director Of Scientific Research Name Role Phone Maddison Obregon MD Unavailable [phone] Maddison Obregon MD Primary Care Provider [phone] Maryann Hensley MD Primary Care Provider [phone] Encounter Details Date Type Department Care Team (Late st Contact Info) Description 11/29/2020 Procedure Pass [facility], [facility] [address] [place] [address] Social History Tobacco Use Types Packs/Day Years [...] high school, GED, job training, learning the Slovak language, technical skills, or developing parenting skills)? [...] Time PHQ-2 Depression Total Score: 0 08/10/19 9:12 AM EDT documented as of this encounter Care Teams Director Of Scientific Research Relationship Specialty Start Date End Date Maddison Obregon MD [address] [place] [address] [email or web address] PCP - General 05/15/17 04/24/22 Maryann Hensley MD [address] [place] [address] [email or web address] PCP - General Family Medicine 04/25/22 Maddison Obregon MD [address] [place] [address] [email or web address] Historical LMR Provider 03/01/17 documented as of this encounter Additional Source Comments The information contained in this document represents components of the legal health record. It is not the complete legal health record.[facility]
--- OUTSIDE RECORDS SUMMARY | 2025-01-04 10:06 | XMS_ITS | Encounter Summary ---
Author Organization [facility] Address [address] [place] [address] [place] [address] Phone Care Team Providers Care Speech Language Pathologist Name Role Phone Maddison Obregon MD Unavailable [phone] Maddison Obregon MD Primary Care Provider [phone] Maryann Hensley MD Primary Care Provider [phone] Encounter Details Date Type Department Care Team (Late st Contact Info) Description 05/26/2018 Ancillary Orders Virtual Department [address] [place] [address] Romero Long MD [address] [place] [address] [email or web address] Intestinal malabsorption, unspecified type Social History Tobacco [...] documented as of this encounter Results * BD DXA AXIAL (SPINE) WITH HIP (06/22/2018 10:53 AM EST) Anatomical Region Laterality Modality Bone Density Bone Density 06/22/2018 5:50 PM EST Impressions 06/22/2018 5:52 PM EST Findings consistent with osteoporosis as demonstrated within the lumbar spine. POS -[id number] Narrative 06/22/2018 5:52 PM EST This is a 57-year-old postmenopausal female with a perceived lifetime height loss of 1 inch. No prior studies for comparison. Evaluation of the lumbar spine and both hips is obtained and appears technically adequate. The lumbar spine from L1 through L4 discloses a total bone mineral density of 0.719 g/cm2 with a T-score of -3.0. Z score -1.9. This is in the osteoporosis range. The right hip has a total bone mineral density of 0.843 g/cm2 with a T-score of -0.8. This is in the normal range. The left hip has a total bone mineral density of 0.844 g/cm2 for a T-score of - 0.8. This is in the normal range. Lateral instant vertebral imaging is no performed. Procedure Note Gurdeep Guerrero MD - 06/22/2018 This is a 57-year-old postmenopausal female with a perceived lifetimeheight loss of 1 inch. No prior studies for comparison. Evaluation of the lumbar spine and both hips is obtained and appearstechnically adequate. The lumbar spine from L1 through L4 discloses a total bone mineral densityof 0.719 g/cm2 with a T-score of -3.0. Z score -1.9. This is in theosteoporosis range. The right hip has a total bone mineral density of 0.843 g/cm2 with aT-score of - 0.8. This is in the normal range. The left hip has a total bone mineral density of 0.844 g/cm2 for a T-scoreof - 0.8. This is in the normal range. Lateral instant vertebral imaging is no performed. IMPRESSION: Findings consistent with osteoporosis as demonstrated within the lumbarspine. POS -[id number] Romero Long MD IMG BD BONE DENSITY DEXA F inal Result documented in this encounter Visit Diagnoses Diagnosis Intestinal malabsorption, unspecified type Intestinal malabsorption, unspecified type documented in this [...] documented as of this encounter Care Teams Speech Language Pathologist Relationship Specialty Start Date End Date Maddison Obregon MD [address] [place] [address], [facility] 7 [place] [address] PCP - General 05/15/17 04/24/22 Maryann Hensley MD [address] [place] [address] 7 [place] [address] PCP - General Family Medicine 04/25/22 Maddison Obregon MD [address] [place] [address], [facility] 7 [place] [address] Historical LMR Provider 03/01/17 documented as of this encounter Additional Source Comments The information contained in this document represents components of the legal health record. It is not the complete legal health record.[facility]
--- OUTSIDE RECORDS SUMMARY | 2025-01-04 10:06 | XMS_ITS | Encounter Summary ---
Author Organization [facility] Address [address] [place] [address] Phone Care Team Providers Care Enterprise Security Architect Name Role Phone Maddison Obregon MD Unavailable [phone] Maryann Hensley MD Primary Care Provider [phone] Encounter Details Date Type Department Care Team (Late st Contact Info) Description 09/10/2022 Procedure Pass [facility], [facility] [address] [place] [address] Social History Tobacco Use Types Packs/Day Years [...] high school, GED, job training, learning the [place] Islander language, technical skills, or developing parenting skills)? [...] documented as of this encounter Care Teams Enterprise Security Architect Relationship Specialty Start Date End Date Maryann Hensley MD [address] [place] [address], [facility] 7 [place] [address] [email or web address] PCP - General Family Medicine 04/25/22 Maddison Obregon MD [address] [place] [address], [facility] 7 [place] [address] Historical LMR Provider 03/01/17 documented as of this encounter Additional Source Comments The information contained in this document represents components of the legal health record. It is not the complete legal health record.[facility]
--- OUTSIDE RECORDS SUMMARY | 2025-01-04 10:06 | XMS_ITS | Encounter Summary ---
Author Organization [facility] Address [address] [place] [address] Phone Care Team Providers Care Retail Pharmacy Technician Name Role Phone Maddison Obregon MD Unavailable [phone] Maryann Hensley MD Primary Care Provider [phone] Encounter Details Date Type Department Care Team (Late st Contact Info) Description 01/22/2024 Procedure Pass [facility], [address] [address] Social History Tobacco Use Types Packs/Day Years [...] high school, GED, job training, learning the Haitian language, technical skills, or developing parenting skills)? [...] housing situation today? I have pedrito grant 01/22/2024 How many times have you move [...] documented as of this encounter Care Teams Retail Pharmacy Technician Relationship Specialty Start Date End Date Maryann Hensley MD [address] [place] [address], [address] [place] [address] PCP - General Family Medicine 12/15/22 Maddison Obregon MD [address] [place] [address], [address] [place] [address] [email or web address] Historical LMR Provider 03/01/17 documented as of this encounter Additional Source Comments The information contained in this document represents components of the legal health record. It is not the complete legal health record.[facility]
--- OUTSIDE RECORDS SUMMARY | 2025-01-04 10:07 | XMS_ITS | Encounter Summary ---
Author Organization [facility] Address [address] [place] [address] Phone Care Team Providers Care Energy Economist Name Role Phone Maddison Obregon MD Unavailable [phone] Maryann Hensley MD Primary Care Provider [phone] Encounter Details Date Type Department Care Team (Late st Contact Info) Description 03/22/2024 Procedure Pass [facility], [address] [address] Social History Tobacco Use Types Packs/Day Years [...] high school, GED, job training, learning the [place] language, technical skills, or developing parenting skills)? [...] documented as of this encounter Care Teams Energy Economist Relationship Specialty Start Date End Date Maryann Hensley MD [address] [place] [address], [address] [place] [address] PCP - General Family Medicine 12/15/22 Maddison Obregon MD [address] [place] [address], [address] [place] [address] [email or web address] Historical LMR Provider 03/01/17 documented as of this encounter Additional Source Comments The information contained in this document represents components of the legal health record. It is not the complete legal health record.[facility]
--- OUTSIDE RECORDS SUMMARY | 2025-01-04 10:07 | XMS_ITS | Clinical Summary ---
Author Organization [facility] Address [address] [facility] [address] [place] [address] Phone Care Team Providers Care Events Specialist Name Role Phone Maddison Obregon MD Unavailable [phone] Maryann Hensley MD Primary Care Provider [phone] Allergies Active Allergy Reactions Criticality Noted Date Comments Nickel Swelling Medium 01/22/2024 Penicillin Rash Low 12/09/2016 Other reaction(s): Unknown Medications vitamins A,C,E-zinc-helicopter technician per (PRESERVISION AREDS) [id number] wpgr-oe-gnie Cap Take 1 capsule by mouth 2 (two) times a day with meals. Active APRISO 0.375 gram 24 hr capsule TAKE 4 CAPSULES BY MOUTH EVERY DAY IN THE MORNING 2 Active acetaminophen (TYLENOL) 650 MG CR tablet Take 650 mg by mouth every 6 (six) hours as needed. 2 Active mesalamine (CANASA) 1000 MG suppositoryInd ications:Medic ation refill PLACE 1 SUPPOSITORY (1,000 MG TOTAL) RECTALLY NIGHTLY AT BEDTIME. 90 suppository 1 4 Active Active Problems Problem Noted Date Diagnosed Date Impacted cerumen of right ear 07/14/2023 Assessment & Plan (07/14/2023 12:04 PM EST): Javi Burgos presents for a cerumen impaction of her right ear. she was agreeable to a flush and this was flushed out without any complications. she will call if there is any other issues. she understands and agrees. Age-related osteoporosis wit hout current pathological fracture 07/17/2018 Overview (07/17/2018): Diagnosed 06/30 on bone density. Limited to the spine. Hips normal. Adenomatous polyp of colon 12/31/2017 Family history of breast cancer 12/31/2017 Family history of colon cancer 12/31/2017 Left sided ulcerative colitis 12/31/2017 Overview (04/25/2022): Followed by [facility] -- on katrina, works great. Assessment & Plan (08/09/2020 10:21 AM EDT): Doing well. Continues to require colonoscopy every 2 years. Vitamin D deficiency 12/31/2017 Kidney stone 12/31/2017 Overview (12/31/2017): 2017, Followed by Urology Assessment & Plan (08/09/2020 9:49 AM EDT): Has seen Dr Luna. He said no further followup needed. Assessment & Plan (06/29/2019 1:24 PM EST): Has a stable right sided stone. Passed a stone in 2017. Encounters Date Type Department Care Team Description 10/22/2024 Orders Only [facility] [address] [place] [address] ProviderBalbina MD 10/14/2024 Telephone [facility] [address] [place] [address] Maryann Hensley MD Follow-up; Medication Question from Last 3 Months Immunizations Immunization Administration Dates Next Due COVID-19 (Pre-03/03) Hien Vaccine, [id number], P F 09/01/2020,08/16/2020 Influenza Recombinant Daysi valent Preservative Free IM 03/07/2020 MMR 01/01/1993 Measles 02/12/1975 Td (adult) 5 Lf Tetanus Toxoid, PF, Adsorbed 08/1990 Td (adult),2 Lf Tetanus Toxoid, PF, Adsorbed Tdap 08/29/2008 Family History Medical History Relation Comments Parkinson's disease Brother Age 72 Colon polyps Father Dementia Father age 94 Heart attack Mother age 70 Hypertension Mother Breast cancer Sister 1 age 35 Breast cancer Sister 2 Colon cancer Sister 2 Diagnosed age 49 Relation Status Comments Brother Alive Father at 94 Mother at 70 of he art attack Sister 1 of breast c ancer at 35 Sister 2 Alive Social History Tobacco Use Types Packs/Day Years [...] high school, GED, job training, learning the Filipino language, technical skills, or developing parenting skills)? [...] on file Sexual Orientation Not on file Last Filed Vital Signs Vital Sign Reading Time Taken Comments Blood Pressure 130/80 01/22/2024 1:24 PM EDT Pulse 92 01/22/2024 1:24 PM EDT Temperature 36.3 C (97.4 F) 01/22/2024 1:24 PM EDT Respiratory Rate 16 10/19/2020 11:35 AM EDT Oxygen Saturation 97% 01/22/2024 1:24 PM EDT Inhaled Oxygen Concentration - - Weight 72.6 kg (160 lb) 03/12/2024 2:07 PM EDT Height 154.9 cm (5' 1 ) 03/12/2024 2:07 PM EDT Body Mass Index 30.23 03/12/2024 2:07 PM EDT Plan of Treatment Health Maintenance Due Date Last Done Comments HIV ONE-TIME SCREENING (18-65 YEARS) 1980 COLOGUARD 12/18/2007 FIT TEST 12/18/2007 FOBT 12/18/2007 SIGMOIDOSCOPY 12/18/2007 VIRTUAL COLONOSCOPY 12/18/2007 PNEUMOCOCCAL VACCINES (50+ years) (1 of 1 - PCV) 2012 ZOSTER VACCINES (1 of 2) 2012 COVID-19 VACCINE ( - season) 2024 06/05/2023, 01/22/2022, 03/06/2021, Additional history exists DEPRESSION SCREENING 01/21/2025 01/22/2024 COLONOSCOPY 02/10/2025 02/10/2023, 10/10, 04/29/2018, Additional history exists COLORECTAL CANCER SCREENING 02/10/2025 MAMMOGRAM 03/29/2026 03/29/2024, 110 11/2023, 03/17/2023, Additional history exists PAP SMEAR 10/04/2026 10/04/2021, 07/25/2016 SCREENING FOR DIABETES 01/28/2027 01/29/2024, 2023 LIPID PANEL 01/28/2029 01/29/2024, 08/11, 07/20/2019, Additional history exists Adult Td,Tdap Booster 06/29/2029 06/29/2019 , 08/29/2008, 04/14/1991 RSV VACCINE (1 - 1-dose 75+ series) 2037 HEPATITIS C SCREENING Completed 07/20/2019 SMOKING STATUS SCREENING (Once After 26 Yrs) Completed 01/22/2024 HEPATITIS A VACCINES Aged Out No long er eligible based on patient's age to complete this topic HIB VACCINES Aged Out No longer eligi ble based on patient's age to complete this topic MENINGOCOCCAL VACCINES (ACWY) Aged Out No longer eligible based on patient's age to complete this topic MENINGOCOCCAL VACCINES (B) Aged Out N o longer eligible based on patient's age to complete this topic Medical Devices Not on file Procedures Procedure Name Priority Date/Time Associated Diagnosis Comments OUTSIDE CT EXTREMITY UPPER REPORT ONLY Routine 10/22/2024 4:14 PM EDT BI MRI BREAST WITH AND WITHOUT CONTRAST (BILATERAL) Routine 03/29/2024 11:20 AM EST At high risk for breast cancer LIPID PANEL Routine 01/29/2024 8:21 AM EDT Left sided ulcerative colitis without complication HM COLONOSCOPY FOR RESULT ENTRY ONLY Routine 02/10/2023 PAP TEST Routine 10/04/2021 12:00 AM EDT HEPATITIS C ANTIBODY, QUALITATIVE Routine 07/20/2019 8:10 AM EDT Need for hepatitis C screening test from Last 3 Months or Most Recently Relevant to Health Maintenance Results * Outside CT Extremity lower Report Only (10/22/2024 4:14 PM EDT) us Historical Provider MD HALE CT EXTREMITY Final Re sult * BI MRI BREAST WITH AND WITHOUT [...] (series 102 image 140), there is a [id number], oval, enhancing (progressive, type I) nodule measuring 0.6cm, this has a stable mammographic correlate dating back to 2021. Inferiorto the enhancing nodule there are 4 linearly oriented enhancing focipresent, there is a mammographic correlate for this finding on priormammogram of 2022 and these are felt to be present mammographically [id number]. Therefore, this MR finding is considered probably [...] MD IMG MR BREAST Final Res ult * (ABNORMAL) Lipid panel (01/29/2024 8:21 AM EDT) HDL 56 mg/dL [facility] Comment: Interpretation <40 mg/dL: Low HDL cholesterol (major risk factor for CHD) Greater than or equal to 60 mg/dL: High HDL cholesterol ( negative risk factor for CHD) HDL - cholesterol is affected by a number of factors, e.g. smoking, excerise, hormones, sex and age. CHOLESTEROL 228 0 - 240 mg/dL [facility] TRIGLYCERIDES 79 30 - 160 mg/dL [facility] LDL 156(H) 50 - 129 mg/dL [facility] Comment: LDL levels in terms of risk for coronary heart disease: <100 mg/dL: Optimal 100-129 mg/dL: Near or above optimal 130-159 mg/dL: Borderline high 160-189 mg/dL: High >190 mg/dL: Very High CARDIAC RISK RATIO 4.1 3.3 - 4.4 [facility] Blood 01/29/2024 8:21 AM EDT 01/29/2024 8:23 AM EDT Maryann Hensley MD LAB BLOOD ORDERABLES Sailaja l Result [address] [address] * COLONOSCOPY FOR RESULT ENTRY ONLY (02/10/2023) Historical Provider HEALTH MAINTENANCE Final Result * Pap Smear (10/04/2021 12:00 AM EDT) 10/04/2021 10/05/2021 9:0 9 AM EDT Narrative SEE NARRATIVE - 10/12/2021 11:35 AM EDT [address] [address] Wastewater Treatment Engineer: Berenice Dudley MD WIRE PRODUCTS INSPECTOR Cytology Report FINAL DIAGNOSIS A. PAP SMEAR (SUREPATH) CE: SPECIMEN ADEQUACY: Satisfactory for evaluation; transformation zone present. INTERPRETATION: NEGATIVE FOR INTRAEPITHELIAL LESION OR MALIGNANCY. Electronically Signed Out By: LYNN Elias(ASCP) The Pap test is a screening test primarily for squamous cancers and precursors and has associated false-negative and false-positive results. New technologies such as liquid-based preparations may decrease but will not eliminate all false-negative results. Regular sampling and follow-up of unexplained clinical signs and symptoms are recommended to minimize false negative results. PROCEDURES/ADDENDA HPV Testing (Requested) Ordered Date: 10/05/2021 A. PAP SMEAR (SUREPATH) CE: Human Papilloma Virus Test Negative for high-risk human papillomavirus types 16, 18, 45 and the Other high risk probe set (Includes 31, 33, 35, 39, 51, 52, 56, 58, 59, 66, 68) by [address] [employer] Onclarity HR-HPV analysis. Clinical correlation is advised. This HPV test was performed at [facility], [address] [place] [address]. This test has been FDA approved for SurePath cervical cytology specimens. The accuracy and precision of this test for all other specimen sources has been verified in the Cytopathology Laboratory of the [facility] and has not been cleared or approved by the U.S. Food and Drug Administration. Clinical correlation is advised. CLINICAL HISTORY Date of Last Menstrual Period: Not Provided Menstrual History: Post Menopausal Other Clinical Conditions: Screening Pap SPECIMEN SOURCE A: PAP SMEAR (SUREPATH) CE Patient Name: JAVI BURGOS : 1960 (Age: 60) Sex: F Institution: [facility] Location: [facility] Date of Collection: 10/04/2021 Date of Reported: 10/12/2021 11:35 Results to: Maddison Obregon MD, BA us Maddison Obregon MD CYTOLOGY ORDERABLES Final Res ult SEE NARRATIVE * Hepatitis C antibody, qualitative (07/20/2019 8:10 AM EDT) HCV NON-REACTIV E NON-REACTI VE [facility] Blood 07/20/2019 8:10 AM EDT 07/20/2019 8:12 AM EDT us Maddison Obregon MD LAB BLOOD ORDERABLES Final Re sult [facility] Organization Address City/State/ZIP Co de Phone Number [facility] [address] [place], [place] [phone] from Last 3 Months or Most Recently Relevant to Health Maintenance Insurance CHOICE CHOICE CHOICE CHOICE CHOICE CHOICE CHOICE CHOICE CHOICE [place] [id number] Care Teams Events Specialist Relationship Specialty Start Date End Date Maryann Hensley MD [address] [place] [address], [address] [place] [address] [email or web address] PCP - General Family Medicine 04/25/22 Maddison Obregon MD [address] [facility], [address] [place] [address] [email or web address] Historical LMR Provider 03/01/17 Additional Source Comments The information contained in this document represents components of the legal health record. It is not the complete legal health record.[facility]
--- OUTSIDE RECORDS SUMMARY | 2025-01-04 10:07 | XMS_ITS | Encounter Summary ---
Author Organization [facility] Address [address] [facility] [address] [place] [address] Phone Care Team Providers Care Field Operations Technician Name Role Phone Maddison Obregon MD Unavailable [phone] Maddison Obregon MD Primary Care Provider [phone] Maryann Hensley MD Primary Care Provider [phone] Encounter Details Date Type Department Care Team (Late st Contact Info) Description 10/19/2020 Procedure Pass [facility] Admitting Dept Virtual Department [address] [place], [place] [id number] Social History Tobacco Use Types Packs/Day Years [...] high school, GED, job training, learning the [place] language, technical skills, or developing parenting skills)? [...] documented as of this encounter Care Teams Field Operations Technician Relationship Specialty Start Date End Date Maddison Obregon MD [address] [place] [address] 7 [place] [address] PCP - General 05/15/17 04/24/22 Maryann Hensley MD [address] [place] [address] 7 [place] [address] PCP - General Family Medicine 04/25/22 Maddison Obregon MD [address] [place] [address] [address] [place] [address] Historical LMR Provider 03/01/17 documented as of this encounter Additional Source Comments The information contained in this document represents components of the legal health record. It is not the complete legal health record.[facility]
== END 2025-01-04 10:07 | disposition home or self-care (01) ==
LOC: HO.HOS 09:30
PROVIDERS: Visit Provider Physician Assistant
DX: S82.142A Displaced bicondylar fracture of left tibia, initial encounter for closed fracture (principal)
CPT/HCPCS: 99213

== ENCOUNTER → 2025-01-04 09:31 | Outpatient (BNV) | payer OTHER, SELFPAY | PROVIDERS: Visit Provider Radiology Diagnostic Radiology | DX: S82.115D Nondisplaced fracture of left tibial spine, subsequent encounter for closed fracture with routine healing (principal) | CPT/HCPCS: 73562 ==

== ENCOUNTER 2025-02-15 09:38 | Outpatient (AMB) | payer OTHER, SELFPAY ==
--- NOTE | 2025-02-15 09:45 | A.OFFVIS_ITS ---
Vital Signs 02/15/25 09:59 Height 5 ft 1 in Weight 160 lb BMI 30.2 Intake Visit Reasons: OV- LT tibial plateau Fx 10/11/24 w/xray Intake Note: Zakiya is a 64 year old female who presents today for a follow up of her Left Tibial Plateau Fracture 10/13/24. At her last visit she was advised to continue with physical therapy to work on gait training, as well as unlocking the brace during ambulation. Patient reports doing well, has gained strength in left leg, and is now able to get her leg to 70 degrees when sitting, 75degrees when doing physical therapy. Patient reported she still in physical therapy, as well as hoping to lose hardware. Allergies Penicillins Allergy (Unknown, Verified 02/15/25 09:58) Hives HPI HPI OV- LT tibial plateau Fx 10/11/24 w/xray: Details: Ms. Burgos is a 64-year-old female who presents to the office today for routine follow-up status post left tibial plateau fracture that she sustained on 10/13/2024. She continues to wear the ACL brace. She has been attending physical therapy working on range of motion. She is also using 1-2 crutches to assist with ambulation at times. Reports no discomfort. 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 Normal to inspection. No ecchymosis, erythema or joint effusion. NVI. Assessment & Plan Assessment & Plan (1) Tibial plateau fracture, left: Code(s): S82.142A - Displaced bicondylar fracture of left tibia, initial encounter for closed fracture Category: Medical Plan While in the office today, the patient was advised to discontinue the ACL brace and any assistive devices such as crutches. She will continue attending physical therapy and really focus on achieving range of motion. Once full range of motion is achieved she may continue onto strengthening. She will follow up in 8 weeks for sxrng-pa-gvjgis check, sooner if needed. X-rays of the left knee which were obtained while in the office today and were reviewed by me, Antonieta Mix PA-C, revealed routine healing left tibial plateau fracture Orders: Orders XR knee LT 3V Today M25.569 - Pain in unspecified knee Coding Level of Care Code Est Pt Level 3 (79922) Diagnoses Tibial plateau fracture, left S82.142A
[2025-02-15 09:59] VITALS: BMI 30.2
--- OUTSIDE RECORDS SUMMARY | 2025-02-15 10:56 | XMS_ITS | Encounter Summary ---
Author Organization [facility] Address [address] [place] [address] Phone Care Team Providers Care Inserting Machine Operator Name Role Phone Maddison Obregon MD Unavailable [phone] Maddison Obregon MD Primary Care Provider [phone] Maryann Hensley MD Primary Care Provider [phone] Encounter Details Date Type Department Care Team (Late st Contact Info) Description 11/29/2020 Procedure Pass [facility] [place], [facility] 30 [place] [address] Social History Tobacco Use Types Packs/Day Years [...] as of this encounter Plan of Treatment Upcoming Encounters Date Type Department Care Team (Late st Contact Info) Description 05/24/2025 10:30 AM EST Office Visit [facility] 10 [place] [address] Unknown, Unknown, MD Long, Romero Farr MD [address] [address] [email or web address] 10/06/2025 9:00 AM EDT Office Visit [facility] 234 [place] [address] Maryann Hensley MD 234 [facility] 7 [place] [address] [email or web address] documented as of this encounter Visit Diagnoses [...] documented as of this encounter Care Teams Inserting Machine Operator Relationship Specialty Start Date End Date Maddison Obregon MD 234 [facility], [facility] 7 [place] [address] [email or web address] PCP - General 05/15/17 04/24/22 Maryann Hensley MD [address] [place] [address] 7 [place] [address] [email or web address] PCP - General Family Medicine 04/25/22 Maddison Obergon MD [address] [place] [address] 7 [place] [address] [email or web address] Historical LMR Provider 03/01/17 documented as of this encounter Additional Source Comments The information contained in this document represents components of the legal health record. It is not the complete legal health record.[facility]
--- OUTSIDE RECORDS SUMMARY | 2025-02-15 10:56 | XMS_ITS | Encounter Summary ---
Author Organization [facility] Address [address] [place] [address] Phone Care Team Providers Care Ear Flap Binder Name Role Phone Maddison Obregon MD Unavailable [phone] Maddison Obregon MD Primary Care Provider [phone] Maryann Hensley MD Primary Care Provider [phone] Encounter Details Date Type Department Care Team (Late st Contact Info) Description 12/24/2021 Procedure Pass [facility], [facility] 30 [place] [address] Social History Tobacco Use Types Packs/Day Years [...] Description 05/24/2025 10:30 AM EST Office Visit [facility] 10 [place] [address] Unknown, Unknown, Romero Smith MD [address] [address] [email or web address] 10/06/2025 9:00 AM EDT Office Visit [address] [address] Maryann Hensley MD [address] [place] [address] [address] [place] [address] [email or web address] documented as of this encounter Visit Diagnoses Not on filedocumented in this encounter Additional Health Concerns Infection Onset Date Last Indicated Resolved Time CoV-Exposed Comment:Recent close contact documented in the COVID-19 Amb Triage Form 12/29/2021 01/02/2022 01/09/2022 1:22 AM E DT Assessment Noted Time PHQ-2 Depression Total Score: 0 10/03/19 2:35 PM EDT documented as of this encounter Care Teams Ear Flap Binder Relationship Specialty Start Date End Date Maddison Obregon MD [address] [facility], [address] [place] [address] [email or web address] PCP - General 05/15/17 04/24/22 Maryann Hensley MD [address] [facility], [address] [place] [address] [email or web address] PCP - General Family Medicine 04/25/22 Maddison Obregon MD [address] [facility], [address] [place] [address] [email or web address] Historical LMR Provider 03/01/17 documented as of this encounter Additional Source Comments The information contained in this document represents components of the legal health record. It is not the complete legal health record.[facility]
--- OUTSIDE RECORDS SUMMARY | 2025-02-15 10:56 | XMS_ITS | Encounter Summary ---
Author Organization [facility] Address [address] [place] [address] Phone Care Team Providers Care Action Installer Name Role Phone Maddison Obregon MD Unavailable [phone] Maddison Obregon MD Primary Care Provider Maryann Hensley MD Primary Care Provider [phone] Encounter Details Date Type Department Care Team (Late st Contact Info) Description 10/02/2021 Procedure Pass [facility] - [address] [place] [address] Social History Tobacco Use Types Packs/Day Years [...] Description 05/24/2025 10:30 AM EST Office Visit [facility] 10 [place] [address] Unknown, Unknown, MD Long, Romero Farr MD [address] [address] [email or web address] 10/06/2025 9:00 AM EDT Office Visit [facility] 234 [place] [address] Maryann Hensley MD [address] [place] [address] [address] [place] [address] [email or web address] documented as of this encounter Visit Diagnoses [...] documented as of this encounter Care Teams Action Installer Relationship Specialty Start Date End Date Maddison Obregon MD [address] [place] [address], [facility] 7 [place] [address] [email or web address] PCP - General 05/15/17 04/24/22 Maryann Hensley MD [address] [place] [address], [facility] 7 [place] [address] [email or web address] PCP - General Family Medicine 04/25/22 Maddison Obregon MD [address] [place] [address], [facility] 7 [place] [address] Historical LMR Provider 03/01/17 documented as of this encounter Additional Source Comments The information contained in this document represents components of the legal health record. It is not the complete legal health record.[facility]
--- OUTSIDE RECORDS SUMMARY | 2025-02-15 10:56 | XMS_ITS | Encounter Summary ---
Author Organization [facility] Address [address] [place] [address] [place] [address] Phone Care Team Providers Care Drafting Technician Name Role Phone Maddison Obregon MD Unavailable [phone] Maddison Obregon MD Primary Care Provider [phone] Maryann Hensley MD Primary Care Provider [phone] Encounter Details Date Type Department Care Team (Late st Contact Info) Description 11/28/2017 Ancillary Orders Virtual Department 30 [place] [address] Shalini Valerio MD [address] [place] [address] [email or web address] Kidney stone Social History Tobacco Use Types [...] Description 05/24/2025 10:30 AM EST Office Visit [facility] 10 [place] [address] Unknown, Unknown, Romero Smith MD [address] [address] 10/06/2025 9:00 AM EDT Office Visit [facility] 234 [place] [address] Maryann Hensley MD [address] [facility], [address] [place] [address] [email or web address] documented as of this encounter Results * US Kidneys (01/28/2018 9:37 AM EDT) Anatomical Region Laterality Modality Abdomen, Kidney Ultrasound 01/28/2018 10:0 5 AM EDT Impressions 01/28/2018 10:29 AM EDT Stable appearance of left renal cysts and right renal stone. No hydronephrosis. POS [id number] Edited by: Carolyn Montano on 01/28/2018 10:12 [...] cysts and right renal stone. Nohydronephrosis. POS [id number] Edited by: Carolyn Montano on 01/28/2018 10:12 AM us Shalini Valerio MD IMG US RENAL Final Resu lt documented in this [...] documented as of this encounter Care Teams Drafting Technician Relationship Specialty Start Date End Date Maddison Obregon MD [address] [place] [address] 7 [place] [address] [email or web address] PCP - General 05/15/17 04/24/22 Maryann Hensley MD [address] [place] [address], [facility] 7 [place] [address] [email or web address] PCP - General Family Medicine 04/25/22 Maddison Obregon MD [address] [place] [address] Historical LMR Provider 03/01/17 documented as of this encounter Additional Source Comments The information contained in this document represents components of the legal health record. It is not the complete legal health record.[facility]
--- OUTSIDE RECORDS SUMMARY | 2025-02-15 10:56 | XMS_ITS | Encounter Summary ---
Author Organization [facility] Address [address] [place] [address] Phone Care Team Providers Care Associate Java Developer Name Role Phone Maddison Obregon MD Unavailable [phone] Maryann Hensley MD Primary Care Provider [phone] Encounter Details Date Type Department Care Team (Late st Contact Info) Description 03/22/2024 Procedure Pass [facility], [address] [address] Social History Tobacco Use Types Packs/Day Years [...] GED, job training, learning the [place] language, technical skills, or developing parenting skills)? [...] Description 05/24/2025 10:30 AM EST Office Visit [facility] [address] [place] [address] Unknown, Unknown, MD Long, Romero Farr MD [address] [place] [address] 10/06/2025 9:00 AM EDT Office Visit [facility] 234 [place] [address] Maryann Hensley MD 234 [facility] 7 [place] [address] [email or web address] documented as of this encounter Visit Diagnoses Not on filedocumented in this encounter Additional Health Concerns Assessment Noted Time PHQ-2 Depression Total Score: 0 01/22/20 24 1:30 PM EDT documented as of this encounter Care Teams Associate Java Developer Relationship Specialty Start Date End Date Maryann Hensley MD 234 [address] [place] [address] [email or web address] PCP - General Family Medicine 04/25/22 Maddison Obregon MD [address] [address] [email or web address] Historical LMR Provider 03/01/17 documented as of this encounter Additional Source Comments The information contained in this document represents components of the legal health record. It is not the complete legal health record.[facility]
--- OUTSIDE RECORDS SUMMARY | 2025-02-15 10:56 | XMS_ITS | Encounter Summary ---
Author Organization [facility] Address [address] [place] [address] Phone Care Team Providers Care Drafting Supervisor Name Role Phone Maddison Obregon MD Unavailable [phone] Maddison Obregon MD Primary Care Provider [phone] Maryann Hensley MD Primary Care Provider [phone] Encounter Details Date Type Department Care Team (Late st Contact Info) Description 02/11/2022 Procedure Pass [facility] 30 [place] [address] Social History Tobacco Use Types Packs/Day Years [...] Description 05/24/2025 10:30 AM EST Office Visit [facility] 10 [place] [address] Unknown, Unknown, MD Long, Romero Farr MD [address] [place] [address] [email or web address] 10/06/2025 9:00 AM EDT Office Visit [facility] 234 [place] [address] Maryann Hensley MD [address] [place] [address] [email or web address] documented as of this encounter Visit Diagnoses Not on filedocumented in this encounter Additional Health Concerns Assessment Noted Time PHQ-2 Depression Total Score: 0 10/03/19 22 2:35 PM EDT documented as of this encounter Care Teams Drafting Supervisor Relationship Specialty Start Date End Date Maddison Obregon MD [address] [place] [address] [email or web address] PCP - General 05/15/17 04/24/22 Maryann Hensley MD [address] [place] [address] 7 [place] [address] [email or web address] PCP - General Family Medicine 04/25/22 Maddison Obregon MD [address] [place] [address] 7 [place] [address] [email or web address] Historical LMR Provider 03/01/17 documented as of this encounter Additional Source Comments The information contained in this document represents components of the legal health record. It is not the complete legal health record.[facility]
--- OUTSIDE RECORDS SUMMARY | 2025-02-15 10:56 | XMS_ITS | Encounter Summary ---
Author Organization [facility] Address [address] [place] [address] [place] [address] Phone Care Team Providers Care Terminal Supervisor Name Role Phone Maddison Obregon MD Unavailable [phone] Maddison Obregon MD Primary Care Provider [phone] Maryann Hensley MD Primary Care Provider [phone] Encounter Details Date Type Department Care Team (Late st Contact Info) Description 04/07/2018 Ancillary Orders Virtual Department [address] [place] [address] Ousmane Sood MD [address] [place] [address] [email or web address] Intestinal malabsorption, unspecified type Social History Tobacco [...] Encounters Date Type Department Care Team (Late Contact Info) Description 05/24/2025 10:30 AM EST Office Visit [facility] 10 [place] [address] Unknown, Unknown, MD Long, Romero Farr MD [address] [address] 10/06/2025 9:00 AM EDT Office Visit [facility] Medicine 234 [place] [address] Maryann Hensley MD [address] [address] [place] [address] [email or web address] documented as of [...] documented as of this encounter Care Teams Terminal Supervisor Relationship Specialty Start Date End Date Maddison Obregon MD [address] [place] [address] [place] [address] [email or web address] PCP - General 05/15/17 04/24/22 Maryann Hensley MD [address] [place] [address] [place] [address] [email or web address] PCP - General Family Medicine 04/25/22 Maddison Obregon MD [address] [place] [address] [place] [address] Historical LMR Provider 03/01/17 documented as of this encounter Additional Source Comments The information contained in this document represents components of the legal health record. It is not the complete legal health record.[facility]
--- OUTSIDE RECORDS SUMMARY | 2025-02-15 10:56 | XMS_ITS | Encounter Summary ---
Author Organization [facility] Address [address] [facility] [address] [place] [address] Phone Care Team Providers Care Insulation Mechanic Name Role Phone Maddison Obregon MD Unavailable [phone] Maddison Obregon MD Primary Care Provider [phone] Maryann Hensley MD Primary Care Provider [phone] Encounter Details Date Type Department Care Team (Late st Contact Info) Description 06/30/2019 Ancillary Orders [facility] 234 [place] [address] Maddison Obregon MD [address] [place] [address] [email or web address] Breast screening Social History Tobacco Use Types [...] Description 05/24/2025 10:30 AM EST Office Visit [facility] 10 [place], [place] [address] Unknown, Unknown, MD Long, Gi Farr MD [address] [address] 10/06/2025 9:00 AM EDT Office Visit [facility] 234 [place] [address] Maryann Hensley MD 234 [facility], [address] [place] [address] [email or web address] documented as of this encounter Results * BI MAMMOGRAM SCREENING WITH TOMOSYNTHESIS WITH CAD (BILATERAL) (11/25/2019 9:26 AM EDT) Anatomical Region Laterality Modality Breast Left, Breast Right, Breast Bilateral Bila teral Mammography 11/25/2019 9:33 AM EDT Impressions 11/25/2019 9:35 AM EDT No mammographic evidence of malignancy. BI-RADS CATEGORY: 1 - Negative. DENSITY: There are scattered fibroglandular densities. POS - [id number] Narrative 11/25/2019 9:35 AM EDT Standard digital [...] and compared with multiple prior studies, most wqsfcyaw90/14/2018, with utilization of computer-aided detection. The breasts are composed of scattered fibroglandular densities. Thestromal markings are essentially unchanged in overall appearance anddistribution. No dominant spiculated mass, suspicious clusteredmicrocalcifications, or focal zone of pathologic skin thickening orretraction are noted to have arisen in the interim. IMPRESSION: No mammographic evidence of malignancy. BI-RADS CATEGORY: 1 - Negative. DENSITY: There are scattered fibroglandular densities. POS - [id number] Maddison Obregon MD IMG MG EXAMS Final [...] documented as of this encounter Care Teams Insulation Mechanic Relationship Specialty Start Date End Date Maddison Obregon MD [address] [place] [address] [email or web address] PCP - General 05/15/17 04/24/22 Maryann Hensley MD [address] [place] [address] [email or web address] PCP - General Family Medicine 04/25/22 Maddison Obregon MD [address] [place] [address] [email or web address] Historical LMR Provider 03/01/17 documented as of this encounter Additional Source Comments The information contained in this document represents components of the legal health record. It is not the complete legal health record.[facility]
--- OUTSIDE RECORDS SUMMARY | 2025-02-15 10:56 | XMS_ITS | Encounter Summary ---
Author Organization [facility] Address [address] [place] [address] Phone Care Team Providers Care Marine Radio Installer And Servicer Name Role Phone Maddison Obregon MD Unavailable [phone] Maryann Hensley MD Primary Care Provider [phone] Encounter Details Date Type Department Care Team (Late st Contact Info) Description 01/22/2024 Procedure Pass [facility], [address] [address] Social History Tobacco Use Types Packs/Day Years [...] high school, GED, job training, learning the [place] Citizen language, technical skills, or developing parenting skills)? [...] Description 05/24/2025 10:30 AM EST Office Visit [facility] [address] [place] [address] Unknown, Unknown, MD Long, Romero Farr MD [address] [place] [address] 10/06/2025 9:00 AM EDT Office Visit [facility] 234 [place] [address] Maryann Hensley MD 234 [facility] 7 [place] [address] [email or web address] documented as of this encounter Visit Diagnoses Not on filedocumented in this encounter Additional Health Concerns Assessment Noted Time PHQ-2 Depression Total Score: 0 01/22/20 24 1:30 PM EDT documented as of this encounter Care Teams Marine Radio Installer And Servicer Relationship Specialty Start Date End Date Maryann Hensley MD 234 [address] [place] [address] [email or web address] PCP - General Family Medicine 04/25/22 Maddison Obregon MD [address] [address] [email or web address] Historical LMR Provider 03/01/17 documented as of this encounter Additional Source Comments The information contained in this document represents components of the legal health record. It is not the complete legal health record.[facility]
--- OUTSIDE RECORDS SUMMARY | 2025-02-15 10:56 | XMS_ITS | Clinical Summary ---
Author Organization [facility] Address [address] [facility] [address] [place] [address] Phone Care Team Providers Care Repairer Helper Name Role Phone Maddison Obregon MD Unavailable [phone] Maryann Hensley MD Primary Care Provider [phone] Allergies Active Allergy Reactions Criticality Noted Date Comments Nickel Swelling Medium 01/22/2024 Penicillin Rash Low 12/09/2016 Other reaction(s): Unknown Medications vitamins A,C,E-zinc-type copy examiner per (PRESERVISION AREDS) [id number],[id number] vpzo-vw-rnez Cap Take 1 capsule by mouth 2 [...] Active Problems Problem Noted Date Diagnosed Date Chronic pain of left knee 01/18/2025 Assessment & Plan (01/18/2025 10:10 AM EDT): Improving left knee discomfort-currently in PT. She will call if there are any other issues or concerns. She understands and agrees. Impacted cerumen of right ear 07/14/2023 Assessment & Plan (01/18/2025 10:10 AM EDT): Javi Burgos presents for a cerumen impaction of her right ear. she was agreeable to a flush and this was flushed out without any complications. she will call if there is any other issues. she understands and agrees. Assessment & Plan (07/14/2023 12:04 PM EST): [...] ulcerative colitis 12/31/2017 Overview (04/25/2022): Followed by [facility] -- on katrina [facility]. Assessment & Plan (08/09/2020 10:21 [...] Encounters Date Type Department Care Team Description 01/18/2025 10:00 AM EDT Office Visit [facility] 234 [place] [address] Juan Parkinson, DO Impacted cerumen of right ear (Primary Dx); Chronic pain of left knee from Last 3 Months Immunizations Immunization Administration Dates Next Due COVID-19 (Pre-03/03) Hien Vaccine, rS-Ad26, P F 09/01/2020,08/16/2020 COVID-19 Pfizer Comirnaty Vaccine 12+ 01/20/2025 Influenza Recombinant Daysi valent Preservative Free IM [...] Date Smoking Tobacco: Never Smokeless Tobacco: Never Tobacco Cessation:Counseling Given: Not Answered Alcohol Use Standard Drinks/Week Comments Yes 3 [...] high school, GED, job training, learning the Burkinan language, technical skills, or developing parenting skills)? [...] Sign Reading Time Taken Comments Blood Pressure 138/80 01/18/2025 9:42 AM EDT Pulse 93 01/18/2025 9:42 AM EDT Temperature 36.8 C (98.3 F) 01/18/2025 9:42 AM EDT Respiratory Rate 16 10/19/2020 11:35 AM EDT Oxygen Saturation 98% 01/18/2025 9:42 AM EDT Inhaled Oxygen Concentration - - Weight 72.6 kg (160 lb) 03/12/2024 2:07 PM EDT Height 154.9 cm (5' 0.98 ) 01/18/2025 9:42 AM ED T Body Mass Index 30.23 03/12/2024 2:07 PM EDT Plan of Treatment Upcoming Encounters Date Type Department Care Team (Late st Contact Info) Description 05/24/2025 10:30 AM EST Office Visit [facility] 10 [place] [address] Unknown, Unknown, MD Long, Romero Farr MD [address] [address] 10/06/2025 9:00 AM EDT Office Visit [facility] 234 [place] [address] Maryann Hensley MD 234 [facility], [address] [place] [address] [email or web address] Health Maintenance Due Date Last Done Comments HIV ONE-TIME SCREENING (18-65 YEARS) 1980 COLOGUARD 12/18/2007 FIT TEST 12/18/2007 FOBT 12/18/2007 SIGMOIDOSCOPY 12/18/2007 VIRTUAL COLONOSCOPY 12/18/2007 PNEUMOCOCCAL VACCINES (50+ years) (1 of 1 - PCV) 2012 ZOSTER VACCINES (1 of 2) 2012 INFLUENZA VACCINE (#1) 2024 03/07/2020 COLONOSCOPY 02/10/2025 02/10/2023, 10/10, 04/29/2018, Additional history exists COLORECTAL CANCER SCREENING 02/10/2025 DEPRESSION SCREENING 01/18/2026 01/18/2025, 01/19/20 25 MAMMOGRAM 03/29/2026 03/29/2024, 11/2023, 03/17/2023, Additional history exists PAP SMEAR 10/04/2026 10/04/2021, 07/25/2016 SCREENING FOR DIABETES 01/28/2027 01/29/2024, 2023 LIPID PANEL 01/28/2029 01/29/2024, 08/11, 07/20/2019, Additional history exists Adult Td,Tdap Booster 06/29/2029 06/29/2019 , 08/29/2008, 04/14/1991 RSV VACCINE (1 - 1-dose 75+ series) 2037 HEPATITIS C SCREENING Completed 07/20/2019 SMOKING STATUS SCREENING (Once After 26 Yrs) Completed 01/18/2025 COVID-19 VACCINE Completed 01/20/2025, , 06/05/2023, Additional history exists HEPATITIS A VACCINES Aged Out No long [...] Procedure Name Priority Date/Time Associated Diagnosis Comments BI MRI BREAST WITH AND WITHOUT CONTRAST [...] Recently Relevant to Health Maintenance Results * BI MRI BREAST WITH AND [...] (series 102 image 140), there is a [id number], oval, enhancing (progressive, type I) nodule measuring 0.6cm, this has a stable mammographic correlate dating back to 2021. Inferiorto the enhancing nodule there are 4 linearly oriented enhancing focipresent, there is a mammographic correlate for this finding on priormammogram of 2022 and these are felt to be present mammographically [id number]. Therefore, this MR finding is considered probably [...] (01/29/2024 8:21 AM EDT) HDL 56 mg/dL [facility] Comment: Interpretation <40 mg/dL: Low HDL cholesterol (major risk factor for CHD) Greater than or equal to 60 mg/dL: High HDL cholesterol ( negative risk factor for CHD) HDL - cholesterol is affected by a number of factors, e.g. smoking, excerise, hormones, sex and age. CHOLESTEROL 228 0 - 240 mg/dL [facility] TRIGLYCERIDES 79 30 - 160 mg/dL [facility] LDL 156(H) 50 - 129 mg/dL [facility] Comment: LDL levels in terms of risk for coronary heart disease: <100 mg/dL: Optimal 100-129 mg/dL: Near or above optimal 130-159 mg/dL: Borderline high 160-189 mg/dL: High >190 mg/dL: Very High CARDIAC RISK RATIO 4.1 3.3 - 4.4 C [facility] Blood 01/29/2024 8:21 AM EDT 01/29/2024 8:23 AM EDT Maryann Hensley MD LAB BLOOD ORDERABLES Sailaja izquierdo Result [address] [address] * HM COLONOSCOPY FOR RESULT ENTRY ONLY (02/10/2023) Historical Provider HEALTH MAINTENANCE Final Result * Pap Smear (10/04/2021 12:00 AM EDT) 10/04/2021 10/05/2021 9:0 9 AM EDT Narrative SEE NARRATIVE - 10/12/2021 11:35 AM EDT [address] [address] Business Services Manager: Berenice Dudley MD CUT IN STATION OPERATOR Cytology Report FINAL DIAGNOSIS A. PAP SMEAR [...] 52, 56, 58, 59, 66, 68) by [employer] Onclarity HR-HPV analysis. Clinical correlation is advised. This HPV test was performed at [facility], [address] [place] [address]. This test has been FDA approved for SurePath cervical cytology specimens. The accuracy and precision of this test for all other specimen sources has been verified in the Cytopathology Laboratory of the [facility] and has not been cleared or approved by the U.S. Food and Drug Administration. Clinical correlation is advised. CLINICAL HISTORY Date of Last Menstrual Period: Not Provided Menstrual History: Post Menopausal Other Clinical Conditions: Screening Pap SPECIMEN SOURCE A: PAP SMEAR (SUREPATH) CE Patient Name: JAVI BURGOS : 1960 (Age: 60) Sex: F Institution: [facility] Location: [facility] Date of Collection: 10/04/2021 Date of Reported: 10/12/2021 11:35 Results to: Maddison Obregon MD, BA us Maddison Obregon MD CYTOLOGY ORDERABLES Final Res ult SEE NARRATIVE * Hepatitis C antibody, qualitative (07/20/2019 8:10 AM EDT) HCV NON-REACTIV E NON-REACTI VE [facility] Blood 07/20/2019 8:10 AM EDT 07/20/2019 8:12 AM EDT us Maddison Obregon MD LAB BLOOD ORDERABLES Final Re sult [facility] [address] [place] [address] from Last 3 Months or Most Recently Relevant to Health Maintenance Insurance [id number] [facility] CHOICE CHOICE CHOICE CHOICE CHOICE Care Teams Repairer Helper Relationship Specialty Start Date End Date Maryann Hensley MD [address] [place] [address], [facility] 7 [place] [address] [email or web address] PCP - General Family Medicine 04/25/22 Maddison Obregon MD [address] [place] [address], [facility] 7 [place] [address] Historical LMR Provider 03/01/17 Additional Source Comments The information contained in this document represents components of the legal health record. It is not the complete legal health record.[facility]
--- OUTSIDE RECORDS SUMMARY | 2025-02-15 10:56 | XMS_ITS | Encounter Summary ---
Author Organization [facility] Address [address] [place] [address] Phone Care Team Providers Care Gravure Press Set Up Operator Name Role Phone Maddison Obregon MD Unavailable [phone] Maddison Obregon MD Primary Care Provider [phone] Maryann Hensley MD Primary Care Provider [phone] Encounter Details Date Type Department Care Team (Late st Contact Info) Description 11/29/2020 Ancillary Orders [facility] 234 [place] [address] Maddison Obregon MD [address] [place] [address] 7 [place] [address] [email or web address] Breast screening Social History Tobacco Use Types [...] high school, GED, job training, learning the Romanian language, technical skills, or developing parenting skills)? [...] Upcoming Encounters Date Type Department Care Team ([facility] st Contact Info) Description 05/24/2025 10:30 AM EST Office Visit [facility] 10 [place] [address] Unknown, Unknown, MD Long, Romero Farr MD [address] [place] [address] 10/06/2025 9:00 AM EDT Office Visit [facility] Medicine [address] [place] [address] Maryann Hensley MD [address] [place] [address], [address] [place] [address] [email or web address] documented as of this encounter Results * [...] documented as of this encounter Care Teams Gravure Press Set Up Operator Relationship Specialty Start Date End Date Maddison Obregon MD [address] [place] [address] 7 [place] [address] [email or web address] PCP - General 05/15/17 04/24/22 Maryann Hensley MD [address] [place] [address] 7 [place] [address] [email or web address] PCP - General Family Medicine 04/25/22 Maddison Obregon MD [address] [place] [address], [facility] 7 [place] [address] [email or web address] Historical LMR Provider 03/01/17 documented as of this encounter Additional Source Comments The information contained in this document represents components of the legal health record. It is not the complete legal health record.[facility]
--- OUTSIDE RECORDS SUMMARY | 2025-02-15 10:56 | XMS_ITS | Encounter Summary ---
Author Organization [facility] [place] Address [address] [place] [address] [place] [address] Phone Care Team Providers Care Product Development Technician Name Role Phone Maddison Obregon MD Unavailable [phone] Maddison Obregon MD Primary Care Provider [phone] Maryann Hensley MD Primary Care Provider [phone] Encounter Details Date Type Department Care Team (Late st Contact Info) Description 04/29/2018 Procedure Pass [facility] Admitting Dept Virtual Department 30 [place] [address] Social History Tobacco Use Types Packs/Day Years [...] Description 05/24/2025 10:30 AM EST Office Visit [facility] [place] [facility] 10 [place] [address] Unknown, Unknown, MD Long, Romero Farr MD [address] [address] 10/06/2025 9:00 AM EDT Office Visit [facility] Medicine 234 [facility] [place] [address] Maryann Hensley MD 234 [facility] 7 [place] [address] [email or web address] documented as of this [...] documented as of this encounter Care Teams Product Development Technician Relationship Specialty Start Date End Date Maddison Obregon MD 234 [facility] 7 [place] [address] [email or web address] PCP - General 05/15/17 04/24/22 Maryann Hensley MD [address] [place] [address] [place] [address] [email or web address] PCP - General Family Medicine 04/25/22 Maddison Obregon MD 234 [facility] [address] [place] [address] [email or web address] Historical LMR Provider 03/01/17 documented as of this encounter Additional Source Comments The information contained in this document represents components of the legal health record. It is not the complete legal health record.[facility]
--- OUTSIDE RECORDS SUMMARY | 2025-02-15 10:56 | XMS_ITS | Encounter Summary ---
Author Organization [facility] Address [address] [employer] [address] [place] [address] Phone Care Team Providers Care Bank Consultant Name Role Phone Maddison Obregon MD Unavailable [phone] Maddison Obregon MD Primary Care Provider [phone] Maryann Hensley MD Primary Care Provider [phone] Encounter Details Date Type Department Care Team (Late st Contact Info) Description 10/19/2020 Procedure Pass [facility]oscopy Admitting Dept Virtual Department 30 [place], [place] [id number] Social History Tobacco Use Types Packs/Day Years [...] high school, GED, job training, learning the Japanese language, technical skills, or developing parenting skills)? [...] Description 05/24/2025 10:30 AM EST Office Visit [facility] 10 [place] [address] Unknown, Unknown, MD Long, Romero Farr MD [address] [address] [email or web address] 10/06/2025 9:00 AM EDT Office Visit [facility] 234 [place] [address] Maryann Hensley MD 234 [facility], [address] [place] [address] [email or web address] documented as of this encounter Visit Diagnoses [...] documented as of this encounter Care Teams Bank Consultant Relationship Specialty Start Date End Date Maddison Obregon MD [address] [place] [address], [address] [place] [address] [email or web address] PCP - General 05/15/17 04/24/22 Maryann Hensley MD [address] [place] [address], [address] [place] [address] [email or web address] PCP - General Family Medicine 04/25/22 Maddison Obregon MD [address] [place] [address], [address] [place] [address] [email or web address] Historical LMR Provider 03/01/17 documented as of this encounter Additional Source Comments The information contained in this document represents components of the legal health record. It is not the complete legal health record.[facility]
--- OUTSIDE RECORDS SUMMARY | 2025-02-15 10:56 | XMS_ITS | Encounter Summary ---
Author Organization [facility] Address [address] [place] [address] Phone Care Team Providers Care Sand Screener Name Role Phone Maddison Obregon MD Unavailable [phone] Maddison Obregon MD Primary Care Provider [phone] Maryann Hensley MD Primary Care Provider [phone] Encounter Details Date Type Department Care Team (Late st Contact Info) Description 02/11/2022 Procedure Pass [facility], [facility] [address] [place] [address] Social History Tobacco Use Types Packs/Day Years [...] high school, GED, job training, learning the Anguill[place] language, technical skills, or developing parenting skills)? [...] Description 05/24/2025 10:30 AM EST Office Visit [facility] 10 [place] [address] Unknown, Unknown, MD Long, Romero Farr MD [address] [place] [address] [email or web address] 10/06/2025 9:00 AM EDT Office Visit [facility] [address] [place] [address] Maryann Hensley MD [address] [place] [address] [email or web address] documented as of this encounter Visit Diagnoses Not on filedocumented in this encounter Additional Health Concerns Assessment Noted Time PHQ-2 Depression Total Score: 0 10/03/19 22 2:35 PM EDT documented as of this encounter Care Teams Sand Screener Relationship Specialty Start Date End Date Maddison Obregon MD [address] [place] [address] [email or web address] PCP - General 05/15/17 04/24/22 Maryann Hensley MD [address] [place] [address] 7 [place] [address] [email or web address] PCP - General Family Medicine 04/25/22 Maddison Obregon MD [address] [place] [address] 7 [place] [address] [email or web address] Historical LMR Provider 03/01/17 documented as of this encounter Additional Source Comments The information contained in this document represents components of the legal health record. It is not the complete legal health record.[facility]
--- OUTSIDE RECORDS SUMMARY | 2025-02-15 10:56 | XMS_ITS | Encounter Summary ---
Author Organization [facility] Address [address] [facility] [address] [place] [address] Phone Care Team Providers Care Supervisor Special Services Name Role Phone Maddison Obregon MD Unavailable [phone] Maddison Obregon MD Primary Care Provider [phone] Maryann Hensley MD Primary Care Provider [phone] Encounter Details Date Type Department Care Team (Late st Contact Info) Description 01/02/2018 Ancillary Orders [address] [address] Maddison Obregon MD [address] [place] [address] [email or web address] Breast screening Social History Tobacco Use Types [...] Description 05/24/2025 10:30 AM EST Office Visit [facility] 10 [place], [place] [phone] Unknown, Unknown, MD Long, Rmoero Farr MD [address] [address] 10/06/2025 9:00 AM EDT Office Visit [facility] 234 [facility] [place] [address] Maryann Hensley MD 234 [facility], [address] [place] [address] [email or web address] documented as of this encounter Results * [...] are scattered fibroglandular densities. POS -CDHMAMA Maddison bOregon MD IMG MG EXAMS Final Result documented [...] Time PHQ-2 Depression Total Score: 0 01/01/20 18 2:53 PM EDT documented as of this encounter Care Teams Supervisor Special Services Relationship Specialty Start Date End Date Maddison Obregon MD [address] [place] [address] PCP - General 05/15/17 04/24/22 Maryann Hensley MD [address] [place] [address] PCP - General Family Medicine 04/25/22 Maddison Obregon MD [address] [place] [address] Historical LMR Provider 03/01/17 documented as of this encounter Additional Source Comments The information contained in this document represents components of the legal health record. It is not the complete legal health record.[facility]
--- OUTSIDE RECORDS SUMMARY | 2025-02-15 10:56 | XMS_ITS | Encounter Summary ---
Author Organization [facility] Address [address] [place] [address] Phone Care Team Providers Care Light Technician Name Role Phone Maddison Obregon MD Unavailable [phone] Maryann Hensley MD Primary Care Provider [phone] Encounter Details Date Type Department Care Team (Late st Contact Info) Description 09/10/2022 Procedure Pass [facility], [address] [address] Social History Tobacco Use Types Packs/Day Years [...] high school, GED, job training, learning the Swedish language, technical skills, or developing parenting skills)? [...] Description 05/24/2025 10:30 AM EST Office Visit [facility] 10 [place] [address] Unknown, Unknown, MD Long, Romero Farr MD [address] [place] [address] 10/06/2025 9:00 AM EDT Office Visit [facility] Medicine [address] [place] [address] Maryann Hensley MD [address] [place] [address] documented as of this encounter Visit Diagnoses Not on filedocumented in this encounter Additional Health Concerns Assessment Noted Time PHQ-2 Depression Total Score: 0 10/03/19 22 2:35 PM EDT documented as of this encounter Care Teams Light Technician Relationship Specialty Start Date End Date Maryann Hensley MD [address] [place] [address] PCP - General Family Medicine 04/25/22 Maddison Obregon MD [address] [place] [address], [address] [place] [address] [email or web address] Historical LMR Provider 03/01/17 documented as of this encounter Additional Source Comments The information contained in this document represents components of the legal health record. It is not the complete legal health record.[facility]
--- OUTSIDE RECORDS SUMMARY | 2025-02-15 10:56 | XMS_ITS | Encounter Summary ---
Author Organization [facility] Address [address] [place] [address] [place] [address] Phone Care Team Providers Care Help Desk Associate Name Role Phone Maddison Obregon MD Unavailable [phone] Maddison Obregon MD Primary Care Provider [phone] Maryann Hensley MD Primary Care Provider [phone] Encounter Details Date Type Department Care Team (Late st Contact Info) Description 05/26/2018 Ancillary Orders Virtual Department [address] [place] [address] Romero Long MD [address] [place] [address] [email or web address] Intestinal malabsorption, unspecified type Social History Tobacco [...] 05/24/2025 10:30 AM EST Office Visit [facility] 10 [place] [address] Unknown, Unknown, Romero Smith MD [address] [address] [email or web address] 10/06/2025 9:00 AM EDT Office Visit [facility] 234 [facility] [place] [address] Maryann Hensley MD 234 [facility], [address] [place] [address] [email or web address] documented as of this encounter Results * [...] the lumbarspine. POS -[id number] Romero Long MD IM BD BONE DENSITY DEXA F inal Result [...] documented as of this encounter Care Teams Help Desk Associate Relationship Specialty Start Date End Date Maddison Obregon MD [address] [place] [address] 7 [place] [address] PCP - General 05/15/17 04/24/22 Maryann Hensley MD [address] [place] [address] 7 [place] [address] PCP - General Family Medicine 04/25/22 Maddison Obregon MD [address] [place] [address], [address] [place] [address] [email or web address] Historical LMR Provider 03/01/17 documented as of this encounter Additional Source Comments The information contained in this document represents components of the legal health record. It is not the complete legal health record.[facility]
--- OUTSIDE RECORDS SUMMARY | 2025-02-15 10:56 | XMS_ITS | Encounter Summary ---
Author Organization [facility] Address [address] [place] [address] [place] [address] Phone Care Team Providers Care Biostatistics Manager Name Role Phone Maddison Obregon MD Unavailable [phone] Maryann Hensley MD Primary Care Provider [phone] Reason for Referral * MRI/CAT Scan - Closed Specialty Diagnoses / Procedures Referred By Chris lewis Referred To Contact Radiology Diagnoses At high risk for breast cancer Procedures MRI Breast (Bilateral) Maryann Hensley MD 234 [facility] 7 [place] [address] Phone: tel: fax: [email or web address] Referral ID Status Reason Start Date Expiration Date Visits Re quested Visits Authorized [id number] Closed 03/22/2024 1 1 Encounter Details Date Type Department Care Team (Late st Contact Info) Description 03/22/2024 Ancillary Orders [facility] Medicine 234 [place] [address] Maryann Hensley MD [address] [address] [email or web address] At high risk [...] high school, GED, job training, learning the Luxembour[place] language, technical skills, or developing parenting skills)? [...] Description 05/24/2025 10:30 AM EST Office Visit [facility] 10 [place] [address] Unknown, Unknown, Romero Smith MD [address] [address] [email or web address] 10/06/2025 9:00 AM EDT Office Visit [facility] 234 [place] [address] Maryann Hensley MD 234 [facility], [address] [place] [address] [email or web address] documented as of this encounter Results * [...] (series 102 image 140), there is a J2jidejyvwnowk, oval, enhancing (progressive, type I) nodule measuring 0.6cm, this has a stable mammographic correlate dating back to 2021. Inferiorto the enhancing nodule there are 4 linearly oriented enhancing focipresent, there is a mammographic correlate for this finding on priormammogram of 2022 and these are felt to be present mammographically [id number]. Therefore, this MR finding is considered probably [...] scheduled mammography appointments and continue annualscreening mammography. Maryann Hensley MD IMG MR BREAST Final Res ult documented in this encounter Visit Diagnoses Diagnosis At high risk for breast cancer- Primary At high risk for breast cancer documented in this encounter Additional Health Concerns Assessment Noted Time PHQ-2 Depression Total Score: 0 01/22/20 24 1:30 PM EDT documented as of this encounter Care Teams Biostatistics Manager Relationship Specialty Start Date End Date Maryann Hensley MD 234 [facility] 7 [place] [address] [email or web address] PCP - General Family Medicine 04/25/22 Maddison Obregon MD [address] [place] [address], [facility] 7 [place] [address] Historical LMR Provider 03/01/17 documented as of this encounter Additional Source Comments The information contained in this document represents components of the legal health record. It is not the complete legal health record.[facility]
== END 2025-02-15 10:43 | disposition home or self-care (01) ==
LOC: HO.HOS 09:38
PROVIDERS: PCP Student in an Organized Health Care Education/Training Program; Visit Provider Physician Assistant
DX: S82.142A Displaced bicondylar fracture of left tibia, initial encounter for closed fracture (principal)
CPT/HCPCS: 99213

== ENCOUNTER → 2025-02-15 09:39 | Outpatient (BNV) | payer OTHER, SELFPAY | PROVIDERS: Visit Provider Radiology Diagnostic Radiology | DX: M17.12 Unilateral primary osteoarthritis, left knee (principal) | CPT/HCPCS: 73562 ==

== ENCOUNTER 2025-02-15 10:46 | Outpatient (REF) | payer OTHER, SELFPAY ==
--- NOTE | ~2025-02-15 | XR_ITS ---
EXAMINATION: XR KNEE, LEFT CLINICAL INFORMATION: M25.569 - Pain in unspecified knee COMPARISON: 01/04/2025, 12/03/2024, 10/13/2024. TECHNIQUE: AP view bilateral knees standing, lateral and patellofemoral views left knee. FINDINGS: RIGHT KNEE: No fracture, dislocation, or suspicious bone lesion. Minimal medial compartment joint space narrowing. Normal soft tissues. LEFT KNEE: Disuse osteopenia noted. Again noted is a nondisplaced fracture of the proximal tibia extending from the tibial spines to the metadiaphysis. Fracture lines are very indistinct and poorly visible indicating continued healing. There is no articular step off. There is normal alignment of the knee. Mild medial and patellofemoral compartment joint space narrowing. Normal patellar alignment without abnormal patellar tilt. There is no joint effusion. Soft tissues appear normal. XR/XR knee LT 3V IMPRESSION: 1. Left knee disuse osteopenia. Continued healing of a nondisplaced tibial plateau fracture. 2. Mild left knee medial and patellofemoral compartment osteoarthrosis. Electronically signed by: Kirit Fulton MD 02/15/2025 09:51 AM EDT
== END 2025-02-15 10:47 | disposition home or self-care (01) ==
LOC: HO.HOSX 10:46
PROVIDERS: Visit Provider Physician Assistant
DX: S82.142D Displaced bicondylar fracture of left tibia, subsequent encounter for closed fracture with routine healing (principal); X58.XXXD Exposure to other specified factors, subsequent encounter
CPT/HCPCS: 73562

== ENCOUNTER 2025-04-15 08:11 | Outpatient (REF) | payer OTHER, SELFPAY ==
--- NOTE | ~2025-04-15 | XR_ITS ---
EXAMINATION: XR KNEE, LEFT CLINICAL INFORMATION: M25.569 - Pain in unspecified knee COMPARISON: Previous x-rays most recent February [address] October 2024 TECHNIQUE: Standing AP view of both knees and lateral and sunrise views of the left knee. FINDINGS: Severe osteopenia. Healing tibial plateau fracture. Fracture lines no longer appreciated. Mild medial femoral tibial joint space narrowing. Small osteophytes at the patellofemoral joint. No appreciable joint effusion. Mild atherosclerotic disease. Standing AP view of the right knee is unremarkable. XR/XR knee LT 3V IMPRESSION: Healing tibial plateau fracture with fracture lines no longer appreciated. Severe osteopenia. Electronically signed by: Shalini Wing MD 04/15/2025 12:30 PM [facility]
== END 2025-04-15 08:12 | disposition home or self-care (01) ==
LOC: HO.HOSX 08:11
PROVIDERS: Visit Provider Physician Assistant
DX: S82.142A Displaced bicondylar fracture of left tibia, initial encounter for closed fracture (principal)
CPT/HCPCS: 73562

== ENCOUNTER 2025-04-15 12:05 | Outpatient (AMB) | payer OTHER, SELFPAY ==
--- NOTE | 2025-04-15 12:24 | MHC.OFFVIS ---
Vital Signs 04/15/25 12:25 Height 5 ft 1 in Weight 150 lb BMI 28.3 Intake Visit Reasons: OV- LT tibial plateau Fx 10/11/24 w/xray Intake Note: Zakiya is a 64 year old female who presents today for a range of motion check of her Left Tibial Plateau Fracture 10/13/24. At her last visit she was advised to continue with physical therapy to work on strengthening and range of motion. Today pateint states she has improved her ROM working with P.T and is happy with her recovery. Allergies Penicillins Allergy (Unknown, Verified 04/15/25 12:25) Hives HPI HPI OV- LT tibial plateau Fx 10/11/24 w/xray: Details: Ms. Burgos is a 64-year-old female who presents to the office today for routine follow-up status post left tibial plateau fracture that occurred on 10/11/2024. At her last appointment she was instructed to continue working with physical therapy on range of motion and gait training. She reports that she has made great progress with her range of motion. She denies any pain at this time. No additional complaints. 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 Normal to inspection. No ecchymosis, erythema or joint effusion. NVI. Psych Appearance: grossly normal Mental Status: mental status grossly normal Attitude: cooperative Assessment & Plan Assessment & Plan (1) Tibial plateau fracture, left: Code(s): S82.142A - Displaced bicondylar fracture of left tibia, initial encounter for closed fracture Category: Medical Plan Ms. Burgos is a 64-year-old female who presents to the office today for routine follow-up status post left tibial plateau fracture that occurred on 10/11/2024. At her last appointment she was instructed to continue working with physical therapy on range of motion and gait training. She reports that she has made great progress with her range of motion. She denies any pain at this time. No additional complaints. While the office today, the patient states that she is going to extend physical therapy sessions to continue working on full range of motion. I have placed a new order for insurance to extend her sessions. she may resume back to normal activities using pain as her guide. She will follow up with Orthopedics p.r.n., sooner if needed. X-rays of the left knee which were obtained while in the office today and were reviewed by me, Antonieta Mix PA-C, revealed healed left tibial plateau fracture. Orders: Orders XR knee LT 3V Today M25.569 - Pain in unspecified knee Coding Level of Care Code Est Pt Level 3 (70957) Complex visit Add On G2211 Diagnoses Tibial plateau fracture, left S82.142A
[2025-04-15 12:25] VITALS: BMI 28.3
== END 2025-04-15 13:05 | disposition home or self-care (01) ==
LOC: HO.HOS 12:05
PROVIDERS: Visit Provider Physician Assistant
DX: S82.142A Displaced bicondylar fracture of left tibia, initial encounter for closed fracture (principal)
CPT/HCPCS: 99213

== ENCOUNTER → 2025-04-15 12:13 | Outpatient (BNV) | payer OTHER, SELFPAY | PROVIDERS: Visit Provider Radiology Diagnostic Radiology | DX: S82.142D Displaced bicondylar fracture of left tibia, subsequent encounter for closed fracture with routine healing (principal); M85.862 Other specified disorders of bone density and structure, left lower leg | CPT/HCPCS: 73562 ==

== ENCOUNTER 2025-05-11 11:06 | Outpatient (RCR) | payer OTHER, SELFPAY ==
--- NOTE | 2024-12-20 07:44 | MHC.PT.EP ---
[facility] [place] Office [place] Office [place] Office [address] [phone] F: [phone] F: [phone] F: [phone] F: [phone] Physical Therapy Plan of Care Date of Evaluation: 12/17/24 Date of Surgery: Diagnosis: DISPLACED BICONDYLAR FX LEFT TIBIA/ TIBAIL PLATEAU FX-> GENTLE ROM, NWB Lt LE Assessment: 64 YO FEMALE REF TO PT W DX Lt NON-DISPLACED PROXIMAL TIBIAL FX S/P FALL ON 10/13/24- SHE HAS BEEN NWB Lt LE AND PRESENTS TO [facility] IN A Lt ACL BRACE AND CRUTCHES. 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 HER ADLS HAVE BEEN DIRECTLY INFLUENCED-> SHE IS UNABLE TO DRIVE, LIMITED HERSELF TO 1 LEVEL LIVING AT HOME, AND HAS INCR ENERGY EXPENDITURE W CURRENT AMB. SHE DENIES PAIN IN HER Lt LE- THERE IS SIGNIF ROM DEFICIT IN Lt KNEE WELL POOR Lt QUAD ACTIV. SHE IS A GREAT CANDIDATE FOR PT AT THIS TIME TO GENTLY ADDRESS ROM, QUAD ACTIV , AND FUNCTIONAL MOB ONCE SHE RECEIVES CLEARANCE FROM ORTHO. SHE AGREES WITH THE POC AND IS EAGER TO PROCEED. Frequency and Duration: The patient will be seen 2 x WK x 8 WKS Short Term Goals: ACTIVATE Lt QUAD/ PROX LE MM INITIATE/ INCREASE GENTLE ROM Lt KNEE-> MANAGE SORENESS RESTORE Lt PATELLAR MOB NOT CURRENTLY-> ONCE CLEARED BY ORTHO-> INITIATE Wt BEARING Lt LE AND ADV GAIT Long-Term Goals: INDEP HEP AND SX MGMT Pt GRAD RESUME REG ADLS--> EFFICIENT GAIT MECH ON LEVEL AND STAIRS IMPROVED LEFI, AT [facility] 13/ WNL STRENGTH Lt LE SLS Lt x 15 SEC Treatment Plan: Modalities to reduce pain, spasms and effusion. Manual therapy to restore motion and function. Therapeutic exercise to improve strength and flexibility. Neuromuscular re-education for posture and balance. Therapeutic activities to return to functional activities of daily living. Electronically signed by: LIDIA GALLAGHER,PT Please sign and return to therapist. Thank you for your referral.
--- NOTE | 2025-05-11 12:14 | MHC.PT.DC ---
[facility] [place] Office [place] Office [place] Office [address] Emigdio Rogers [address] [phone] F: [phone] F: [phone] F: [phone] F: [phone] Physical Therapy Discharge Report Diagnosis: DISPLACED BICONDYLAR FX LEFT TIBIA/ TIBAIL PLATEAU FX-> GENTLE ROM, NWB Lt LE Date of Surgery: Date of Evaluation: 12/17/24 Date of Discharge: 05/11/25 Treatments to Date: 32 Cancellations to Date: 2 No Shows to Date: Discharge Status: Achieved Goals Improved Function Independent with HEP Discharge Summary: ALIZA HAS PROGRESSED VERY WELL IN PT EVIDENT IN EFFICIENT GAIT ON LEVEL GROUND AND STAIRS, WITHOUT ASST DEVICES, TUG TEST 8 SEC; LEFI 49/80 ( AT EVAL 13/80)- SHE HAS BEEN ABLE TO GRAD RESUME HER ADLs- SHE HAS IMPROVED STREMGTH IN Lt LE (SOME RESIDUAL ECCENTRIC DEFICITS Lt QUADS-> ADDRESSING W HEP)- SHE DISPLAYED SLS Lt LE x 30 SEC AND HER Lt KNEE ROM IS 0* TO 120*; WE DISCUSSED CONTINUING EXER AT [facility] UPON D/C FROM PT - ALIZA IS DISCHARGED THIS DATE FROM PT, SHE IS PLEASED W HER PROGRESS AND READY TO CONT W HER PROGRESSIVE HEP UPON D/C Electronically signed by: LIDIA GALLAGHER,PT Please sign and return to therapist. Thank you for your referral.
== END 2025-05-11 12:18 | disposition home or self-care (01) ==
LOC: HO.PT 11:06
PROVIDERS: PCP Student in an Organized Health Care Education/Training Program; Visit Provider Physician Assistant
DX: S82.142D Displaced bicondylar fracture of left tibia, subsequent encounter for closed fracture with routine healing (principal)
CPT/HCPCS: 97110; 97112; 97116; 97140; 97162; 97530; 97535